=== PATIENT | male | born 1965 | race Caucasian/White ===

== ENCOUNTER 2017-07-06 08:42 | Emergency (ER) | payer SELFPAY ==
[2017-07-06] VITALS (7 sets, daily range): BP systolic 119–138; BP diastolic 61–77; PULSE 68–102; RESP 18–22; TEMP 36.6; O2SAT 92–100; BMI 45.8
--- NOTE | 2017-07-06 09:03 | RAD_ITS ---
STUDY: X-RAY CHEST REASON FOR EXAM: Male, 52 years old. Productive cough. TECHNIQUE: Frontal and lateral views of the chest. COMPARISON: July 29, 2016 FINDINGS: The lungs are hyperexpanded and unchanged. There is no demonstrated pleural abnormality. Normal size heart. Normal mediastinum and mega. Normal visualized pulmonary arteries. Normal visualized aortic arch and descending thoracic aorta. Normal visualized thoracic spine. Normal visualized ribs, clavicles, and shoulders. There is no demonstrated abnormality of the visualized soft tissue structures of the upper abdomen. RAD/Chest PA and Lateral IMPRESSION: Hyperexpansion with no acute pathology. Electronically Signed: Crow Ashraf MD at 10:53 EST , Service support ,
[2017-07-06] MEDS: Ipratropium/Albuterol Sulfate 3 ML AMPUL.NEB INHALATION (09:15)
[2017-07-06] MEDS: Albuterol 2.5 MG/3 ML VIAL.NEB. INHALATION ×3 (09:15→09:48)
[2017-07-06 09:28] LABS: Absolute Lymphocyte Count 2.67 X10^3/ul (0.83-4.51); Absolute Neutrophil Count 8.3 X10^3/uL (2.0-7.7); Basophil# 0.02 X10^3/uL; Basophil% 0.2 % (0-1); Eosinophil# 0.35 X10^3/uL; Eosinophils% 2.9 % (0-5); Hematocrit 40.3 % (40-54); Hemoglobin 12.3 g/dl (13.0-16.5); Lymphocyte # 2.67 X10^3/ul (4.0); Mean Corp Hgb Conc 30.5 g/gl (32-36); Mean Corpuscular Hgb 31.8 pg (27.0-32.0); Mean Corpuscular Volume 104.1 fL (80-94); Monocyte# 0.79 X10^3/uL; Monocyte% 6.5 % (0-10); Neutrophil # 8.32 X10^3/uL (2.7-7.7); Neutrophil % 68.3 % (47-70); Platelet Count 316 K/mm3 (150-450); RBC Distribution Width SD 57.2 fl (35.1-43.9); Red Blood Count 3.87 M/mm3 (4.6-6.2); White Blood Count 12.2 K/mm3 (4.4-11.0)
[2017-07-06 09:33] LABS: POSITIVE COUNT NO; POSITIVE DIFFERENTIAL NO; POSITIVE MORPHOLOGY NO
[2017-07-06 09:38] LABS: Anion Gap 6 (5-15); BUN 15 mg/dL (7-18); BUN/Creat Ratio 18.2 RATIO (10-20); Calcium,Total 9.4 mg/dL (8.5-10.1); Chloride 106 mmol/L (98-107); Creatinine, Serum 0.82 mg/dL (0.70-1.30); EST Glomerular Filtration Rate 104 mL/min (>60); Est Glom Filt Rate - Afr Amer 126 mL/min (>60); Estimated Creatinine Clearance 125.95 ml/min; Glucose 131 mg/dL (74-106); Potassium 3.9 mmol/L (3.5-5.1); Sodium Level 142 mmol/L (136-145)
--- NOTE | 2017-07-06 10:31 | ED.DCSUM_ITS ---
- ER Visit Summary Date of Service: 07/06/17 Chief Complaint: [Cough] History of Present Illness: The patient is a 52 M [who presents the emergency department with 4 days of cough sore throat subjective fevers right ear pain headache and myalgias. He was admitted for 6 days 6 or 7 months ago with pneumonia and he feels like he may be getting that again. He has had a thick yellow productive sputum. He has a history of asthma and COPD he has been taking ProAir for that however he supposed to be on Symbicort but has not been on them for several months. He does smoke. He is otherwise healthy except for borderline elevation of his blood pressure] Physical Examination: [] 92% on room air other vitals within acceptable limits Obese WN WD NAD PERRL EOMI TMs are clear Posterior oropharynx is normal MMM NECK supple and nontender, no masses RRR no murmur rub or gallop, no peripheral edema, symmetric radial pulses Diminished breath sounds diffusely no respiratory distress ABDOMEN is soft and nontender, normal bowel sounds, no distension, no rebound or guarding SKIN is warm and dry no rashes Alert and Oriented x3, CN II-XII in tact, no motor or sensory deficits, gait normal No lymphadenopathy Test Results: [] Emergency Department Course and Treatment: [Chest x-ray was obtained to rule out pneumonia. It shows no acute process. He does have hyperexpansion consistent with COPD and asthma. He was given breathing treatments and prednisone in the emergency department. He did improve. He had improvement air movement on auscultation. He was ambulated and pulse ox maintained at 96%. He did get mildly dyspneic. At this time I do think he can be discharged home. He will be given doxycycline prednisone and albuterol nebulize. He was given precautions for which to return and will follow up with his primary care doctor] Treatment Plan: [] Disposition: [Discharge] Impression: [Asthma with bronchitis] This note was generated with [employer] dictation software. It may contain incorrect words, spelling, and punctuation that were not noted in review of the chart prior to signing ED Disposition - Plan for ED Patient: Chief Complaint: Cough Referrals: Haris Stout Chi, MD [Primary Care Provider] -
--- NOTE | 2017-07-06 11:50 | ED.DEP ---
ED Disposition - Plan for ED Patient: Chief Complaint: Cough Instructions: ED Bronchitis Asthmatic Prescriptions: Albuterol Aerosols [Ventolin Aerosols] 2.5 mg INHALATION Q4H PRN #25 vial Prednisone [Deltasone] 60 mg PO DAILY 5 Days #15 tablet Doxycycline Monohydrate 100 mg PO BID #20 capsule Referrals: Haris Stout Chi, MD [Primary Care Provider] - 3-5 Days
== END 2017-07-06 12:30 | disposition home or self-care (01) ==
LOC: ED 09:11
PROVIDERS: Emergency Provider Emergency Medicine; Family Provider Family Medicine Geriatric Medicine; PCP Family Medicine Geriatric Medicine
DX: J40 Bronchitis, not specified as acute or chronic (principal); J44.9 Chronic obstructive pulmonary disease, unspecified; H92.01 Otalgia, right ear; R03.0 Elevated blood-pressure reading, without diagnosis of hypertension; E66.9 Obesity, unspecified; Z87.01 Personal history of pneumonia (recurrent); Z72.0 Tobacco use
CPT/HCPCS: 71046; 80048; 85025; 87804; 94640; 99283; A4216

== ENCOUNTER 2018-02-03 10:07 | Inpatient (IN) | payer OTHER, SELFPAY ==
[2018-02-03] VITALS (16 sets, daily range): BP systolic 120–158; BP diastolic 72–97; PULSE 71–91; RESP 14–22; TEMP 36.4–37.1; O2SAT 84–95; BMI 44.7; BMI 44.4; BMI 44.5
--- NOTE | 2018-02-03 10:22 | EKG12_ITS ---
Test Reason : SOB Blood Pressure : / mmHG Vent. Rate : 084 BPM Atrial Rate : 084 BPM P-R Int : 150 ms QRS Dur : 090 ms QT Int : 368 ms P-R-T Axes : 067 -25 028 degrees QTc Int : 434 ms Normal sinus rhythm Low voltage QRS Borderline ECG Confirmed by CORAL MADISON ([id number]), associate editor RUSSEL MCKEON ([id number]) on 02/09/2018 1:43:50 PM Referred By: Confirmed By:CORAL MADISON
--- NOTE | 2018-02-03 10:25 | ED.VISSUMM ---
- ER Visit Summary Date of Service: 02/03/18 Chief Complaint: Shortness of breath History of Present Illness: The patient is a 52 M presenting with shortness of breath. He states this started on Thursday. Shortness of breath has been worse with exertion. He states he walks about 15 steps and becomes short of breath. He has chest pain associated with this. He states he has been using an inhaler very frequently over the past several days and this has not been helping. He has a history of a previous [place]. His only medication is pro-air. He is a smoker. Denies PE/DVT risk factors. Physical Examination: Vitals are stable. Patient is afebrile. Alert no acute distress. Pulse ox 88% on room air, 95% on 2 L. HEENT exam is unremarkable. Neck is supple. Lungs are diminished bilaterally. Heart is regular rate and rhythm. Abdomen is soft nontender nondistended. Extremities are unremarkable. Skin is warm and dry. No focal neurologic deficit. Remainder of exam is unremarkable. Emergency Department Course and Treatment: Patient is given albuterol, Atrovent aerosols. EKG is sinus rate of 84 with no acute ischemic changes. CBC shows hemoglobin 12.8. Chemistries show glucose 151. Troponin is negative. D-dimer is 1.49. Due to elevated d-dimer, CTA chest was obtained and shows bilateral pulmonary emboli worse on the right side. He was given Xarelto. When attempting to stand up for ambulation patient became hypoxic. Will discuss with the hospitalist for admission. Disposition: Admission Impression: Bilateral pulmonary embolism, hypoxia This note was generated with [employer] dictation software. It may contain incorrect words, spelling, and punctuation that were not noted in review of the chart prior to signing ED Disposition - Plan for ED Patient: Chief Complaint: Shortness of Breath Referrals: Haris Stout Chi, MD [Primary Care Provider] -
[2018-02-03] MEDS: Ipratropium/Albuterol Sulfate 3 ML AMPUL.NEB INHALATION (10:31)
[2018-02-03 11:07] LABS: Anion Gap 7 (5-15); BUN 17 mg/dL (7-18); BUN/Creat Ratio 21.2 RATIO (10-20); Calcium,Total 9.3 mg/dL (8.5-10.1); Chloride 107 mmol/L (98-107); EST Glomerular Filtration Rate 107 mL/min (>60); Est Glom Filt Rate - Afr Amer 130 mL/min (>60); Glucose 151 mg/dL (74-106); Potassium 4.2 mmol/L (3.5-5.1); Sodium Level 144 mmol/L (136-145)
[2018-02-03 11:08] LABS: D-Dimer Quantitative (DVT/PE) 1.49 FEU/ug/m (0.27-0.49)
--- NOTE | 2018-02-03 11:09 | ED.RN ---
notified of d-dimer of 1.49.
[2018-02-03 11:10] LABS: Absolute Lymphocyte Count 1.72 X10^3/ul (0.83-4.51); Absolute Neutrophil Count 6.5 X10^3/uL (2.0-7.7); Basophil# 0.02 X10^3/uL; Basophil% 0.2 % (0-1); Eosinophil# 0.28 X10^3/uL; Eosinophils% 3.1 % (0-5); Hematocrit 40.8 % (40-54); Hemoglobin 12.8 g/dl (13.0-16.5); Lymphocyte # 1.72 X10^3/ul (4.0); Lymphocyte % 18.8 % (19-41); Mean Corp Hgb Conc 31.4 g/gl (32-36); Mean Corpuscular Hgb 32.9 pg (27.0-32.0); Mean Corpuscular Volume 104.9 fL (80-94); Mean Platelet Vol. 10.4 fl (6.2-12.0); Monocyte# 0.63 X10^3/uL; Monocyte% 6.9 % (0-10); Neutrophil % 70.9 % (47-70); Platelet Count 266 K/mm3 (150-450); RBC Distribution Width CV 15.1 % (11.6-14.6); RBC Distribution Width SD 57.7 fl (35.1-43.9); Red Blood Count 3.89 M/mm3 (4.6-6.2); White Blood Count 9.2 K/mm3 (4.4-11.0)
[2018-02-03 11:12] LABS: POSITIVE COUNT NO; POSITIVE DIFFERENTIAL NO; POSITIVE MORPHOLOGY NO
[2018-02-03 11:36] LABS: BNP,B-Type NATRIURETIC PEPTIDE 193.1 pg/mL (0-100)
--- NOTE | 2018-02-03 13:06 | NURSING ---
101 PE ANA ROSA
[2018-02-03] MEDS: Rivaroxaban 15 MG Tablet PO ×2 (13:22→22:43)
[2018-02-03] MEDS: oxyCODONE 5 MG Tablet PO ×3 (14:12→22:56)
--- NOTE | 2018-02-03 15:21 | PCM.HP.STD ---
Problem List (1) Pulmonary embolism Status: Acute Qualifiers: Pulmonary embolism type: other Chronicity: acute (2) Acute respiratory failure with hypoxia Status: Acute History of Present Illness Date of Admission: 02/03/18 Chief Complaint: shortness of breath. The patient is a 52 year old M since with shortness of breath since Thursday. Worse with exertion. Did have some intermittent chest pain with this as well. Did have some dizziness. Presented to the emergency room and was found to have bilateral pulmonary emboli. Patient states that this is similar to when he had pulmonary embolism in the past. Patient stated that happened about 8 years ago and was unprovoked and was taken off by his physician from [facility]. Patient denies any recent long travel or any lower extremity injuries. [] Past Medical History Past Medical History (Chronic Problems): Chronic Problems DANIEL (obstructive sleep apnea) (Chronic) history of mild CAD (Chronic) Bronchial asthma (Chronic) Chronic obstructive lung disease (Chronic) Medical History: Medical History (Last Updated 02/03/18 @ 15:24 by Nicho Garvin DO) Asthma J45.909 CAD (coronary artery disease) I25.10 COPD (chronic obstructive pulmonary disease) J44.9 DANIEL (obstructive sleep apnea) G47.33 VTE (venous thromboembolism) I82.90 Allergies egg Allergy (Verified 07/06/17 08:44) Anaphylaxis tree nut [Tree Nut] Allergy (Verified 07/06/17 08:44) Anaphylaxis SHRIMP Allergy (Uncoded 07/06/17 08:44) Anaphylaxis Home Medications: Ambulatory Orders Medication Instructions Recorded Albuterol IH (ProAir) [Proair Hfa] 2 puff INHALATION Q2H PRN PRN #1 08/02/16 inhaler Surgical History: herniorrhaphy, - - knee surgery Psychiatric History: No pertinent psych hx Lives: Spouse/ Significant Other Smoking Status: Light Smoker (<10/day) Tobacco Use: Cigarettes Alcohol: None Drugs: None - *Family History Paternal History Items: Heart Disease - Father was diagnosed coronary artery disease as preop evaluationin his 60s and had quadruple bypass surgery Review of Systems Constitutional: Denies: Anorexia, Chills, Fever Eyes: Denies: Blurred vision, Double vision HEENT: Denies: Head Aches, Sinus Congestion, Sinus Drainage Cardiovascular: Reports: Chest Pain, Edema - chronic Respiratory: Reports: Shortness of breath upon exertion. Denies: Cough Gastrointestinal: Denies: Abdominal Pain, Nausea, Vomiting Genitourinary: Denies: Dysuria Musculoskeletal: Denies: Joint Pain, Joint Tenderness Skin: Denies: Rash, Wounds Neurological: Denies: Numbness, Tingling, Focal weakness Psychiatric: Denies: Anxiety, Depression Endocrine: Denies: Change in Body Habitus, Heat/ Cold Intolerance Hematologic/ Lymphatic: Reports: Hx of blood clot. Denies: Easy Bruising, Easy Bleeding Comment: All review of systems are negative except as mentioned in the history of present illness and the other review of systems. VTE Information - Inpt Only VTE Present on Admission: No VTE Mechan Device Prophylaxis: None VTE Pharm Prophylaxis ordered?: No VTE Suspected: Suspected PE Patient Problems: Active and Suspected Problems Pulmonary embolism (Acute) Acute respiratory failure with hypoxia (Acute) - Physical Exam General: Alert, Cooperative, No apparent distress HEENT: Atraumatic, Normocephalic, - - Glasses. No icterus. Oral: Moist Mucosa, No Gingival or Mucosal Lesions/ Ulcerations Neck: No Nodes, Thyroid Normal Size and Texture Lungs: Clear to auscultation, Normal air movement, No rhonchi, No wheeze Cardiovascular: Regular rate, Regular Rhythm, Normal S1, Normal S2, No murmurs Abdomen: Bowel Sounds Present, Soft, Non Tender, Non-Distended, No Hepato-splenomegaly Extremities: No Calf Tenderness, Edema - Trace Skin: No rashes, No breakdown Musculoskeletal: No Tenderness to Palpation of Joints or Extremities, No Muscle Wasting Neurological: Deep Tendon Reflexes 2+/4 and Symmetrical, - - No clonus Psych/Mental Status: Normal Affect, Appropriate Vital Signs Temp Pulse Resp BP Pulse Ox 37.0 C 91 14 158/97 H 84 02/03/18 13:38 02/03/18 15:00 02/03/18 13:38 02/03/18 13:38 02/03/18 15:19 Oxygen Delivery Method Room Air Weight: 161.4 kg Body Mass Index (BMI) 44.4 Laboratory Tests 02/03/18 02/03/18 02/03/18 Range/Units 10:40 10:40 10:40 WBC (4.4-11.0) K/mm3 RBC (4.6-6.2) M/mm3 Hgb (13.0-16.5) g/dl Hct (40-54) % MCV (80-94) fL MCH (27.0-32.0) pg MCHC (32-36) g/gl RDW (11.6-14.6) % RDW Differential (35.1-43.9) fl Plt Count (150-450) K/mm3 MPV (6.2-12.0) fl Immature Gran % (Auto) (0.0-0.9) % Neut % (Auto) (47-70) % Lymph % (Auto) (19-41) % [place] % (Auto) (0-10) % Eos % (Auto) (0-5) % Baso % (Auto) (0-1) % Absolute Neuts (auto) (2.0-7.7) X10^3/uL Absolute Lymphs (auto) (0.83-4.51) X10^3/ul Total Counted D-Dimer Quant (PE/DVT) 1.49 H* (0.27-0.49) FEU/ug/m Sodium 144 (136-145) mmol/L Potassium 4.2 (3.5-5.1) mmol/L Chloride 107 (98-107) mmol/L Carbon Dioxide 30.0 (21.0-32.0) mmol/L Anion Gap 7 (5-15) BUN 17 (7-18) mg/dL Creatinine 0.80 (0.70-1.30) mg/dL Estim Creat Clear Calc 129.10 ml/min Est GFR (MDRD) Af Amer 130 (>60) mL/min Est GFR (MDRD) Non-Af 107 (>60) mL/min BUN/Creatinine Ratio 21.2 H (10-20) RATIO Glucose 151 H (74-106) mg/dL Calcium 9.3 (8.5-10.1) mg/dL Troponin I < 0.015 (<0.045) ng/mL B-Natriuretic Peptide 193.1 H (0-100) pg/mL 02/03/18 Range/Units 10:40 WBC 9.2 (4.4-11.0) K/mm3 RBC 3.89 L (4.6-6.2) M/mm3 Hgb 12.8 L (13.0-16.5) g/dl Hct 40.8 (40-54) % MCV 104.9 H (80-94) fL MCH 32.9 H (27.0-32.0) pg MCHC 31.4 L (32-36) g/gl RDW 15.1 H (11.6-14.6) % RDW Differential 57.7 H (35.1-43.9) fl Plt Count 266 (150-450) K/mm3 MPV 10.4 (6.2-12.0) fl Immature Gran % (Auto) 0.100 (0.0-0.9) % Neut % (Auto) 70.9 H (47-70) % Lymph % (Auto) 18.8 L (19-41) % Black[place] % (Auto) 6.9 (0-10) % Eos % (Auto) 3.1 (0-5) % Baso % (Auto) 0.2 (0-1) % Absolute Neuts (auto) 6.5 (2.0-7.7) X10^3/uL Absolute Lymphs (auto) 1.72 (0.83-4.51) X10^3/ul Total Counted Not Reportable D-Dimer Quant (PE/DVT) (0.27-0.49) FEU/ug/m Sodium (136-145) mmol/L Potassium (3.5-5.1) mmol/L Chloride (98-107) mmol/L Carbon Dioxide (21.0-32.0) mmol/L Anion Gap (5-15) BUN (7-18) mg/dL Creatinine (0.70-1.30) mg/dL Estim Creat Clear Calc ml/min Est GFR (MDRD) Af Amer (>60) mL/min Est GFR (MDRD) Non-Af (>60) mL/min BUN/Creatinine Ratio (10-20) RATIO Glucose (74-106) mg/dL Calcium (8.5-10.1) mg/dL Troponin I (<0.045) ng/mL B-Natriuretic Peptide (0-100) pg/mL Clinical Impression(s) from Imaging Studies Chest X-Ray 02/03/18 10:22 IMPRESSION: Hyperinflation. Decreased bronchovascular markings in the right upper lobe suggestive of emphysematous changes. No acute abnormality is seen. Electronically Signed: Elliot Dover MD at 11:01 EDT Tel [phone], Service support , Chest CTA 02/03/18 11:09 IMPRESSION: Bilateral pulmonary emboli worse on the right side. Stable scarring in both lungs. Electronically Signed: Elliot Dover MD at 12:38 EDT Tel [phone], Service support , Assessment/Plan All Active Problems Pulmonary embolism (Acute) Acute respiratory failure with hypoxia (Acute) Pneumonia (Acute) Atypical chest pain (Acute) 1. Bilateral pulmonary emboli Currently stable at this time Continue with Xarelto Given that this is unprovoked in the patient's previous blood clot was unprovoked, patient will require lifelong anticoagulation Check an echocardiogram to evaluate for right heart strain 2. Acute hypoxic respiratory failure Secondary to pulmonary emboli Ambulatory pulse ox on discharge Disposition: Patient be monitored overnight. We will check an amatory pulse ox in the morning. Follow-up on the rest results and patient's course and patient could be discharged as early as the 6th. Code Visit Inpatient E&M: 23008 Init Hosp L3
[2018-02-03] MEDS: Albuterol 2.5 MG/3 ML VIAL.NEB. INHALATION (18:23)
[2018-02-04] VITALS (13 sets, daily range): BP systolic 128–136; BP diastolic 62–69; PULSE 76–84; RESP 16–20; TEMP 36.2–36.7; O2SAT 3–93
[2018-02-04] MEDS: oxyCODONE 5 MG Tablet PO ×3 (03:40→15:53)
[2018-02-04] MEDS: Albuterol 2.5 MG/3 ML VIAL.NEB. INHALATION ×3 (06:55→15:11)
[2018-02-04] MEDS: Rivaroxaban 15 MG Tablet PO (07:54)
--- NOTE | 2018-02-04 12:13 | CASEMGMT ---
Face to Face with patient for initial transition planning/care coordination assessment. JEOVANY NAVA introduced self and role at [facility], pt voices understanding and consents to assessment at this time. Pt is sitting up in bed in no distress at this time. Pt is A/O x4 at this time and answers all questions appropriately. Care providers, pharmacy, and demographics verified. See attached link. Pt voices no further concerns/needs at this time. Advised pt to ask for CM if any further questions/concerns/needs arise, voices understanding. CM working on home oxygen and anti-coagulation. PLAN: [place] JEOVANY NAVA
--- NOTE | 2018-02-04 12:26 | PCM.DC ---
- Discharge Diagnoses Current Active Problems: Current Active and Chronic Problems (Last Updated 02/03/18 @ 15:24 by Nicho Garvin DO) Pulmonary embolism (Acute) Acute respiratory failure with hypoxia (Acute) You will use the following diet at home:: Cardiac Your food should be the consistency of: Regular Your liquids should be the consistency of: Regular/Thin Discharge Activity: Return to Normal Activity Additional Instructions: Use O2 as directed. You also need to talk to your PCP about having a repeat sleep study. Allergies/Adverse Reactions: Allergies egg Allergy (Verified 07/06/17 08:44) Anaphylaxis tree nut [Tree Nut] Allergy (Verified 07/06/17 08:44) Anaphylaxis SHRIMP Allergy (Uncoded 07/06/17 08:44) Anaphylaxis Medications to take at Discharge Albuterol IH (ProAir) [Proair Hfa] 2 puff INHALATION Q2H PRN PRN #1 inhaler 08/02/16 Acetaminophen [Tylenol Tablet] 650 mg PO Q6H PRN PRN tablet 02/04/18 Enoxaparin [Lovenox] 240 mg SC DAILY #7 syringe 02/04/18 Warfarin [Coumadin] 5 mg PO DAILY #30 tab 02/04/18 The following prescriptions were given: Enoxaparin [Lovenox] 240 mg SC DAILY #7 syringe Warfarin [Coumadin] 5 mg PO DAILY #30 tab Primary Care Physician: Haris Stout Chi, MD [Primary Care Provider] - Please follow up with your Primary Care Physician in: 1 week Test Results: Test results from this visit will be discussed in further detail at your follow-up appointment, if applicable.
--- NOTE | 2018-02-04 12:34 | CASEMGMT ---
Addendum entered by Catrachita Gatica 02/04/18 14:52: This RN CM spoke with [facility] pharmacy again in regards to Lovenox 240mg daily and tech states that co-pay will be $565 for 7 days of Lovenox for pt. Fabi LEIGH and Dr. Garvin aware at this time and order for Fragmin sent to [facility] pharmacy at this time. Call then placed to pharmacy again and they state that that fragmin dose was discontinued and it is also not covered under pt's insurance. Call to Amy project construction manager and asked if pt had extenuating circumstances that the hospital would cover pt's lovenox with Rx assist program. She states to have Lovenox transferred to [facility] retail pharmacy and have them run med and see what cost would be. Call to Esteavn at [facility] retail pharmacy to have him transfer script and get co-pay rome and then we will see if we can get Rx assist to help. Vero THAYER CM Original Note: Per Fabi LEIGH, pt to be sent home on Xarelto and med e-scribed to [facility]. Call to [facility] pharmacy and per tech, scripts will be $400-500/month depending on dosage and even with Xarelto co-pay card pt would still be paying several hundred dollars out of pocket. Fabi LEIGH aware and into room with this RN CM to discuss with pt. Pt states that he would be unable to afford that per month. Per Fabi LEIGH, pt can now go on Coumadin and will be bridged with Lovenox. Lovenox to be e-scribed and this RN ELIJAH will call to check on co-pay. Vero THAYER CM
[2018-02-04 13:15] LABS: International Normalized Ratio 1.9; Prothrombin Time (Protime)PT. 21.6 SECONDS (11.7-14.9)
[2018-02-04] MEDS: Enoxaparin 120 MG/0.8 ML Syringe 240 MG SC (13:38)
--- NOTE | 2018-02-04 15:44 | PCM.DC.SUM ---
<Kishor Henderson - Last Filed: 02/04/18 15:44> Discharge Date and Diagnosis - Problem List Patient Problems: Active and Suspected Problems (Last Updated 02/03/18 @ 15:24 by Nicho Garvin DO) Pulmonary embolism (Acute) Acute respiratory failure with hypoxia (Acute) Date of Admission: 02/03/18 Date of Discharge: 02/04/18 - Primary Discharge Diagnosis Active and Suspected Problems (Last Updated 02/03/18 @ 15:24 by Nicho Garvin DO) Pulmonary embolism (Acute), recurrent Acute respiratory failure with hypoxia (Acute) COPD CAD DANIEL - Secondary Discharge Diagnosis Chronic Problems (Last Updated 02/03/18 @ 15:24 by Nicho Garvin DO) Chronic obstructive lung disease (Chronic) Bronchial asthma (Chronic) history of mild CAD (Chronic) DANIEL (obstructive sleep apnea) (Chronic) Hospital Course and Treatment Imaging Results: RAD/Chest 1 View (Portable) IMPRESSION: Hyperinflation. Decreased bronchovascular markings in the right upper lobe suggestive of emphysematous changes. No acute abnormality is seen. CT/CTA Chest W/WO Contrast IMPRESSION: Bilateral pulmonary emboli worse on the right side. Stable scarring in both lungs. Echo: Interpretation Summary Mild concentric left ventricular hypertrophy. The estimated ejection fraction is 75 %. Normal diastology for age. Moderately dilated right ventricle. Mild segmental dysfunction of right ventricle. Trivial tricuspid valve insufficiency. Right ventricular systolic pressure estimated to be 39 mmHg. Mild pulmonary hypertension. RV apical strain consistent with acute pulmonary embolism The study was technically difficult. There is no comparison study available. Contrast injection was performed. Operations: None Procedures: 2-D Echocardiogram Summary of Care Provided: Physical exam on day of discharge: General: Resting comfortably NAD Psych: A/Ox3 normal affect HEENT: PEARRLA AT NC Neck: Supple NT CV: RRR no m/t/r/g/h Resp: CTA Abd: [id number] Soft NT no guarding or rigidity, morbidly obese Ext: DP2+= no edema Skin: W/D normal turgor Lymph/Heme: No active bleeding or adenopathy Neuro: CN2-12 intact Hospital course: The patient is a 52 year old M with a history of pulmonary embolism, COPD, hypertension, DANIEL noncompliant with CPAP, morbid obesity who presented to the emergency with chief complaint of shortness of breath, worse with exertion. In the ER he had an elevated D dimer and a CTA revealed bilateral PE. Trop neg. He was placed on Xarelto and admitted to the PCU on telemetry. He underwent an echocardiogram which did demonstrate a strain pattern. His symptoms improved significantly overnight, however he still remained short of breath especially with exertion, and was unable to be weaned off of oxygen. He required continuous oxygen both at rest and with exertion and will require oxygen going forward at discharge from the hospital. Unfortunately he was unable to afford Xarelto for discharge so he was transitioned to Lovenox with Coumadin bridge. He will continue Lovenox as an outpatient until his Coumadin is therapeutic. He will need to have his INR checked as an outpatient in 2 days and further have his dosage adjusted per his PCP. He was discharged home in stable condition. Please follow-up with her PCP in 1-2 weeks. The patient also revealed to me while he was here that he had sleep apnea however his sleep study was 8 years ago and he only recently acquired a machine, and that he plans to adjust the settings on his own as he did not know what he needed. I encouraged him to get a repeat sleep study and to discuss this with his PCP. This patient was seen by Kishor Henderson PA-C under the supervision of Doctor Bharathi. [] Discharge Diet: Low fat/ Low Cholesterol, 2000 mg Sodium Diet Discharge Activity: Return to Normal Activity Home Medications: Medications to take at Discharge Albuterol IH (ProAir) [Proair Hfa] 2 puff INHALATION Q2H PRN PRN #1 inhaler 08/02/16 Acetaminophen [Tylenol Tablet] 650 mg PO Q6H PRN PRN tablet 02/04/18 Dalteparin [Fragmin] 15,000 units SC Q12H #14 syringe 02/04/18 Warfarin [Coumadin] 5 mg PO DAILY #30 tab 02/04/18 Following Prescrptions Were Given to Patient: Dalteparin [Fragmin] 15,000 units SC Q12H #14 syringe Warfarin [Coumadin] 5 mg PO DAILY #30 tab Primary Care Physician: Haris Stout Chi, MD [Primary Care Provider] - Please follow up with your Primary Care Physician in: 1 week Disposition: Home Minutes spent on discharge:: 35 Patient Condition:: Stable Medical Necessity - Tobacco Use Smoking Status: Light Smoker (<10/day) Tobacco Use: Cigarettes Meaningful Use Info Meaningful Use Diagnoses (Choose all that apply): VTE - VTE Anticoag overlap given w/in hospital stay or rx'd at dc?: Yes Pt receive overlap for 5 days?: Yes <Nicho Garvin - Last Filed: 02/04/18 16:18> Discharge Date and Diagnosis - Primary Discharge Diagnosis Active and Suspected Problems (Last Updated 02/03/18 @ 15:24 by Nicho Garvin DO) Pulmonary embolism (Acute) Acute respiratory failure with hypoxia (Acute) - Secondary Discharge Diagnosis Chronic Problems (Last Updated 02/03/18 @ 15:24 by Nicho Garvin DO) Chronic obstructive lung disease (Chronic) Bronchial asthma (Chronic) history of mild CAD (Chronic) DANIEL (obstructive sleep apnea) (Chronic) Hospital Course and Treatment Operations: None Procedures: 2-D Echocardiogram Summary of Care Provided: Patient seen and examined independently. Data reviewed. I agree with the above note by the physician broker assistant. The patient is a 52 year old M is with shortness of breath. Patient was found to have PEs. Patient also had acute hypoxic respiratory failure due to that. Patient had an ultrasound did not show any heart strain on echocardiogram. Initially the plan was for the patient to be discharged with Xarelto and Eliquis. Patient has a very high deductible which he has not met and the cost of over $500 was prohibitive for him. The patient will receive Coumadin and Lovenox. Case management was looking through our pharmacy to get Lovenox so that he would have to pay the very minimal or none for that. Patient is looking at lifelong anticoagulation given that this is second non-provoked thromboembolic event. [] Discharge Diet: Low fat/ Low Cholesterol, 2000 mg Sodium Diet Discharge Activity: Return to Normal Activity Disposition: Home Patient Condition:: Stable Meaningful Use Info Meaningful Use Diagnoses (Choose all that apply): VTE - VTE Anticoag overlap given w/in hospital stay or rx'd at dc?: No Pt receive overlap for 5 days?: No Reason overlap not ordered, prescribed, or given for 5 days: Procedure Not Indicated Code Visit Inpatient E&M: 80058 Disch Hosp
--- NOTE | 2018-02-04 16:02 | CASEMGMT ---
F2F faxed to [facility] at this time and call to [facility] to notify that F2F faxed and that pt will be discharged today, voices understanding. Vero THAYER CM
--- NOTE | 2018-02-04 16:33 | CASEMGMT ---
Patient's co-pay for any of the blood thinners are over $300. Patient cannot afford this. With approval the [facility] indigent medication program was used. Le [place]
--- NOTE | 2018-02-04 18:26 | NURSING ---
TALKED W/ PT AGAIN ABOUT IMPORTANCE OF WEARING O2 AT ALL TIMES. STATES HE WOULD TRY.
--- NOTE | 2018-02-05 16:01 | CASEMGMT ---
JEOVANY NAVA DC CALL Discharge Date: 02/04/18 Disposition: Home with Lovenox Bridging LACE 9/STRATA 3 Intro role of CM to patient via home phone. Reviewed dc instructions, no questions. Discussed medications including Lovenox injections. pt states he gave his injection this am and did fine. No f/u appointment has been made yet-pt states he will make his own on Thursday. JEOVANY NAVA encouraged early f/u due to his medications (coumadin, lovenox). No further questions. Nicole ESPINOZA RN ACM
== END 2018-02-04 18:19 | disposition home or self-care (01) | DRG 175 ==
LOC: ED 10:51 → PCU 13:19
PROVIDERS: Physician Assistant; Emergency Provider Emergency Medicine; Family Provider Family Medicine Geriatric Medicine; PCP Family Medicine Geriatric Medicine
DX: I26.99 Other pulmonary embolism without acute cor pulmonale (principal); J96.01 Acute respiratory failure with hypoxia; Z68.41 Body mass index [BMI] 40.0-44.9, adult; J44.9 Chronic obstructive pulmonary disease, unspecified; I25.10 Atherosclerotic heart disease of native coronary artery without angina pectoris; G47.33 Obstructive sleep apnea (adult) (pediatric); E66.01 Morbid (severe) obesity due to excess calories; F17.210 Nicotine dependence, cigarettes, uncomplicated
CPT/HCPCS: 71045; 71275; 80048; 83880; 84484; 85025; 85379; 85610; 93005; 93306; 94640; 99283; 99406; Q9957; Q9967; A4216; C8929

== ENCOUNTER → 2018-02-06 13:28 | Outpatient (CLI) | payer OTHER, SELFPAY ==
[2018-02-06 13:44] LABS: International Normalized Ratio 1.1; Prothrombin Time (Protime)PT. 14.6 SECONDS (11.7-14.9)
== END ==
PROVIDERS: Family Provider Family Medicine Geriatric Medicine; PCP Family Medicine Geriatric Medicine; Visit Provider Physician Assistant
DX: I26.99 Other pulmonary embolism without acute cor pulmonale (principal); Z79.01 Long term (current) use of anticoagulants
CPT/HCPCS: 36415; 85610

== ENCOUNTER → 2018-05-18 12:24 | Outpatient (CLI) | payer OTHER, SELFPAY ==
[2018-05-18 12:09] VITALS: BMI 45.8
--- NOTE | 2018-05-18 12:50 | RAD_ITS ---
STUDY: X-RAY - RIGHT KNEE REASON FOR EXAM: Male, 53 years old. 3 week history of medial pain. No known injury. TECHNIQUE: 4 view(s) of the knee. COMPARISON: None. FINDINGS: Normal visualized distal femur. Normal visualized proximal tibia and fibula. Normal proximal tibiofibular articulation. There is moderate degenerative arthrosis of the medial femorotibial compartment with moderate joint space narrowing. Normal lateral femorotibial compartment. Normal patellofemoral articulation. Small joint effusion. RAD/Knee 4 or More Views IMPRESSION: Degenerative arthrosis. Small joint effusion. Electronically Signed: Elliot Dover MD at 13:16 EST Tel [phone], Service support ,
--- NOTE | 2018-05-18 12:57 | VDLE_ITS ---
Reason For Study: localized edema RIGHT LEFT GSV is normal. GSV is normal. CFV is compressible, spontaneous, phasic, CFV is compressible, spontaneous, phasic, competent and demonstrates normal competent, and demonstrates normal augmentation. augmentation. FV is compressible, spontaneous, phasic, FV is compressible, spontaneous, phasic, competent and demonstrates normal competent and demonstrates normal augmentation. augmentation. POP V is compressible, spontaneous, phasic, POP V is compressible, spontaneous, phasic, competent and demonstrates normal competent and demonstrates normal augmentation. augmentation. T/P Trunk is compressible. T/P Trunk is compressible. PTV is compressible. PTV is compressible. RT PerV is compressible. LT PerV is compressible. Procedure Exam performed in department. The exam was diagnostic. A preliminary report was called and/or faxed to Dr. Stout. Interpretation Summary Deep veins of the lower extremities are bilaterally patent and compressible segmentally. There is no evidence of deep vein thrombosis on either side. Valvular competence appears intact within the proximal deep venous systems bilaterally. The greater saphenous veins appear bilaterally patent and compressible segmentally. Ordering Physician: Haris Stout Performed By: Gil Turner RVT
[2018-05-18 13:30] LABS: Absolute Lymphocyte Count 2.08 X10^3/ul (0.83-4.51); Absolute Neutrophil Count 3.8 X10^3/uL (2.0-7.7); Basophil# 0.02 X10^3/uL; Basophil% 0.3 % (0-1); Eosinophil# 0.21 X10^3/uL; Eosinophils% 3.2 % (0-5); Hematocrit 39.3 % (40-54); Hemoglobin 12.5 g/dl (13.0-16.5); Lymphocyte # 2.08 X10^3/ul (4.0); Lymphocyte % 31.3 % (19-41); Mean Corp Hgb Conc 31.8 g/gl (32-36); Mean Corpuscular Hgb 32.1 pg (27.0-32.0); Mean Platelet Vol. 10.5 fl (6.2-12.0); Monocyte# 0.55 X10^3/uL; Monocyte% 8.3 % (0-10); Neutrophil # 3.77 X10^3/uL (2.7-7.7); Neutrophil % 56.6 % (47-70); POSITIVE COUNT NO; POSITIVE DIFFERENTIAL NO; POSITIVE MORPHOLOGY NO; Platelet Count 324 K/mm3 (150-450); RBC Distribution Width CV 14.8 % (11.6-14.6); RBC Distribution Width SD 53.2 fl (35.1-43.9); Red Blood Count 3.89 M/mm3 (4.6-6.2); White Blood Count 6.7 K/mm3 (4.4-11.0)
[2018-05-18 13:43] LABS: International Normalized Ratio 1.7
[2018-05-18 13:54] LABS: Anion Gap 9 (5-15); BUN 16 mg/dL (7-18); BUN/Creat Ratio 20.6 RATIO (10-20); Calcium,Total 9.6 mg/dL (8.5-10.1); Chloride 108 mmol/L (98-107); Creatinine, Serum 0.78 mg/dL (0.70-1.30); EST Glomerular Filtration Rate 112 mL/min (>60); Est Glom Filt Rate - Afr Amer 135 mL/min (>60); Glucose 101 mg/dL (74-106); Potassium 5.1 mmol/L (3.5-5.1); Sodium Level 144 mmol/L (136-145)
--- OUTSIDE RECORDS SUMMARY | 2018-08-19 22:17 | XMS RPT_ITS ---
:1965 Author Organization OHIP Support Name Relationship Address Phone CHAPA STORES Unavailable [address] + [place] [address] BHUPINDER ORTEGA Unavailable Unavailable + VU HUGHES Unavailable [address] + [place] [address] CHAPA STORES Unavailable [address] + [place] [address] BHUPINDER ORTEGA Unavailable Unavailable + VU HUGHES Unavailable [address] + [place] [address] CHAPA STORES Unavailable [address] + [place] [address] BHUPINDER ORTEGA Unavailable Unavailable + VU HUGHES Unavailable [address] + [place] [address] CHAPA STORES Unavailable [address] + [place] [address] MITA CLIFFORD Unavailable [address] + [address] [place] [address] VU HUGHES Unavailable [address] + [place] [address] CHAPA STORES Unavailable [address] + [place] [address] BHUPINDER ORTEGA Unavailable Unavailable + VU HUGHES Unavailable [address] + [place] [address] CHAPA STORES Unavailable [address] + [place] [address] BHUPINDER ORTEGA Unavailable Unavailable + VU HUGHES Unavailable [address] + [place] [address] CHAPA [facility] Unavailable [address] + [place] [address] MITA CLIFFORD Unavailable [address] + [address] [place] [address] VU HUGHES Unavailable [address] + [place] [address] Care Team Providers Name Role Phone Girish, Haris Chi Attending Unavailable Girish, Haris Chi Primary Care Unavailable Dameon Madison Attending Unavailable Jopperi, Nicho Referring Unavailable Beatriz, Kishor Attending Unavailable Girish, Haris Chi Primary Care Unavailable Jopperi, Nicho Admitting Unavailable Jopperi, Nicho Attending Unavailable Girish, Haris Chi Primary Care Unavailable Jopperi, Nicho Consulting Unavailable Girish, Haris Chi Primary Care Unavailable Jopperi, Nicho Admitting Unavailable Jopperi, Nicho Attending Unavailable Jopperi, Nicho Admitting Unavailable Girish, Haris Chi Primary Care Unavailable Jopperi, Nicho Consulting Unavailable Jopperi, Nicho Attending Unavailable Girish, Haris Chi Primary Care Unavailable Clarissa, Jacy Attending Unavailable PROBLEMS PROBLEMS DATE TYPE CONDITION / CODE ATTENDING STATUS SOURCE 03/04/2018 Unknown R06.02 - Dameon Madison Active Marilla Shortness of Community breath / Hospital R06.02(ICD-10) Repository PROCEDURES PROCEDURES No Procedure Records FoundRESULTS RESULTS VENOUS DUPLEX LOWER Observed: 05/18/2018 Status: F Source: [place] EXTREMITY 7:42 PM [facility] REPOSITORY [facility] Cardiovascular Services [address] [place] [address] Venous Duplex US - Elio Extrem 05/18/18 1301 MR#: [id number] Acct: [id number] Name: CONSTANCE HUGHES Rep #: [id number] : 1965 53 From: Nahid Hoang MD Attending Dr: Girish BASS,Haris Calzada Status: REG CLI Ordering Dr: Haris Stout MD Date: 05/18/18 Location: [facility] Sex: M C Admitted: Reason For Study: localized edema RIGHT LEFT GSV is normal. GSV is normal. CFV is compressible, spontaneous, phasic, CFV is compressible, spontaneous, phasic, competent and demonstrates normal competent, and demonstrates normal augmentation. augmentation. FV is compressible, spontaneous, phasic, FV is compressible, spontaneous, phasic, competent and demonstrates normal competent and demonstrates normal augmentation. augmentation. POP V is compressible, spontaneous, phasic, POP V is compressible, spontaneous, phasic, competent and demonstrates normal competent and demonstrates normal augmentation. augmentation. T/P Trunk is compressible. T/P Trunk is compressible. PTV is compressible. PTV is compressible. RT PerV is compressible. LT PerV is compressible. Procedure Exam performed in department. The exam was diagnostic. A preliminary report was called and/or faxed to Dr. Stout. Interpretation Summary Deep veins of the lower extremities are bilaterally patent and compressible segmentally. There is no evidence of deep vein thrombosis on either side. Valvular competence appears intact within the proximal deep venous systems bilaterally. The greater saphenous veins appear bilaterally patent and compressible segmentally. Ordering Physician: Haris Stout Performed By: Gil Turner, RVT 05/18/181941 Date Nahid Hoang MD CC: Haris Stout MD Date Dictated: 05/18/18 1301 Date Transcribed: 05/18/181941 Catcher Plug: Signed KNEE 4 OR MORE Observed: 05/18/2018 Status: F Source: [place] VIEWS 12:34 PM [facility] REPOSITORY [facility] Imaging Services [address] [place] [address] Knee 4 or More Views MR#: [id number] Acct: [id number] Name: CONSTANCE HUGHES Rep #: [id number] : 1965 M 53 From: Elliot Dover MD PCP: Haris Stout MD, Chi Status: REG CLI Study: Knee 4 or More Views Date of Exam: 05/18/18 Exam# [id number] Ordering Dr: Haris Stout MD STUDY: X-RAY - RIGHT KNEE REASON FOR EXAM: Male, 53 years old. 3 week history of medial pain. No known injury. TECHNIQUE: 4 view(s) of the knee. COMPARISON: None. FINDINGS: Normal visualized distal femur. Normal visualized proximal tibia and fibula. Normal proximal tibiofibular articulation. There is moderate degenerative arthrosis of the medial femorotibial compartment with moderate joint space narrowing. Normal lateral femorotibial compartment. Normal patellofemoral articulation. Small joint effusion. RAD/Knee 4 or More Views IMPRESSION: Degenerative arthrosis. Small joint effusion. Electronically Signed: Elliot Dover MD at 13:16 EST Tel [phone], Service support , CC: Haris Stout MD Catcher Plug: Signed CBC W/DIFF, AUTOMATED Collected: 05/18/2018 Status: F Source: [place] 12:26 PM [facility] REPOSITORY TYPE CODE TESTS RESULT OUT OF RANGE REFERENCE UNITS LAB L100.1000 4.4-11.0 K/mm3 Normal WBC 6.7 LAB L100.1200 4.6-6.2 M/mm3 Low RBC 3.89 LAB L100.1300 13.0-16.5 g/dl Low HGB 12.5 LAB L100.1400 40-54 % Low HCT 39.3 LAB L100.1500 80-94 fL High MCV 101.0 LAB L100.1600 27.0-32.0 pg High MCH 32.1 LAB L100.1700 32-36 g/gl Low MCHC 31.8 LAB L100.1810 11.6-14.6 % High RDW CV 14.8 LAB L100.1820 35.1-43.9 fl High RDW SD 53.2 LAB L100.1900 150-450 K/mm3 Normal PLT 324 LAB L100.2000 6.2-12.0 fl Normal MPV 10.5 LAB L100.2100 47-70 % Normal NEUT% 56.6 LAB L100.2200 19-41 % Normal LY% 31.3 LAB L100.2300 0-10 % Normal MONO% 8.3 LAB L100.2400 0-5 % Normal EO% 3.2 LAB L100.2500 0-1 % Normal BASO% 0.3 LAB L100.2550 0.0-0.9 % Normal IM GRAN % 0.300 Result Comment: IG% - Immature Granulocytes (promyelocytes, myelocytes and metamyelocytes) > 1% indicates that a LEFT SHIFT is Present. LAB L100.2620 2.0-7.7 X10 3/uL Normal Absolute Neut 3.8 LAB L100.2720 0.83-4.51 X10 3/ul Normal Absolute Lymph 2.08 Performed By: #### L100.0100 #### [facility] [address] [place], [address] BASIC METABOLIC Collected: 05/18/2018 Status: F Source: [place] PROFILE ([facility]) 12:26 PM [facility] REPOSITORY TYPE CODE TESTS RESULT OUT OF RANGE REFERENCE UNITS LAB L501.0100 74-106 mg/dL Normal GLU 101 Result Comment: Fasting Glucose result from 100 to 125 mg/dL suggests IMPAIRED HOMEOSTASIS per A.D.A. criteria. Please note revised GLUCOSE reference range effective 2017. LAB L501.1000 7-18 mg/dL Normal BUN 16 LAB L501.1100 0.70-1.30 mg/dL Normal CREAT,SERUM 0.78 Result Comment: The validity of the calculated GFR AND GFRAA in patients over 70 years has not been determined. Clinical correlation is essential. LAB L501.1110 >60 mL/min Normal EST GFR 112 Result Comment: Non- GFR Calc LAB L501.1115 >60 mL/min Normal EST GFR - AA 135 Result Comment: GFR Calc LAB L501.1300 10-20 RATIO High BUN/CRE 20.6 LAB L501.2200 8.5-10.1 mg/dL CA Normal 9.6 LAB L501.5300 136-145 mmol/L NA Normal 144 LAB L501.5600 3.5-5.1 mmol/L K Normal 5.1 LAB L501.5900 98-107 mmol/L High CL 108 LAB L501.6100 21.0-32.0 mmol/L Normal CO2 27.0 LAB L501.6200 5-15 Normal GAP 9 Performed By: #### L500.2500 #### [facility] [address] [place], [address] PROTHROMBIN TIME W/INR Collected: 05/18/2018 Status: F Source: [place] 12:26 PM [facility] REPOSITORY TYPE CODE TESTS RESULT OUT OF RANGE REFERENCE UNITS LAB L300.4150 11.7-14.9 SECONDS High PROTIME 20.0 LAB L300.4200 Normal INR 1.7 Performed By: #### L300.3900 #### [facility] [address] [place], [address] 12 LEAD ELECTROCARDIOGRAM Observed: 02/09/2018 Status: F Source: [place] 1:43 PM [facility] REPOSITORY [facility] Cardiovascular Services [address] [place] [address] 12 Lead EKG 02/03/18 1008 MR#: [id number] Acct: [id number] Name: CONSTANCE HUGHES Keyonna Rep #: [id number] : 1965 52 From: Dameon Madison MD Attending Dr: Nicho Garvin DO Status: DIS IN Ordering Dr: Stephanie Moon MD Date: 02/03/18 Location: [facility] Sex: M C Admitted: 02/03/18 Test Reason : SOB Blood Pressure : / mmHG Vent. Rate : 084 BPM Atrial Rate : 084 BPM P-R Int : 150 ms QRS Dur : 090 ms QT Int : 368 ms P-R-T Axes : 067 -25 028 degrees QTc Int : 434 ms Normal sinus rhythm Low voltage QRS Borderline ECG Confirmed by DAMEON MADISON ([id number]), script editor RUSSEL MCKEON ([id number]) on 02/09/2018 1:43:50 PM Referred By: Confirmed By:DAMEON MADISON 02/09/18 1343 Date Dameon Madison MD CC: Stephanie Moon MD; Nicho Garvin DO; Haris Stout MD Signed PROTHROMBIN TIME W/INR Collected: 02/06/2018 Status: F Source: [place] 1:31 PM [facility] REPOSITORY Order Comment: Send Results To: PCP Reason for Laboratory Test Coumadin TYPE CODE TESTS RESULT OUT OF RANGE REFERENCE UNITS LAB L300.4150 11.7-14.9 SECONDS Normal PROTIME 14.6 LAB L300.4200 Normal INR 1.1 Performed By: #### L300.3900 #### [facility] [address] [facility] [place], [address] DISCHARGE SUMMARY Observed: 02/04/2018 Status: F Source: [place] 4:19 PM [facility] REPOSITORY [facility] Medical Records Department [address] [place] [address] Discharge Summary 02/04/18 1544 MR#: [id number] Acct: [id number] Name: CONSTANCE HUGHES Rep #: [id number] : 1965 52 From: Kishor AVENDAÑO PCP: Haris Stout MD, Chi Status: ADM IN Location: [facility] [id number] <Kishor Henderson - Last Filed: 02/04/18 15:44> Discharge Date and Diagnosis - Problem List Patient Problems: Active and Suspected Problems (Last Updated 02/03/18 @ 15:24 by Nicho Garvin DO) Pulmonary embolism (Acute) Acute respiratory failure with hypoxia (Acute) Date of Admission: 02/03/18 Date of Discharge: 02/04/18 - Primary Discharge Diagnosis Active and Suspected Problems (Last Updated 02/03/18 @ 15:24 by Nicho Garvin DO) Pulmonary embolism (Acute), recurrent Acute respiratory failure with hypoxia (Acute) COPD CAD DANIEL - Secondary Discharge Diagnosis Chronic Problems (Last Updated 02/03/18 @ 15:24 by Nicho Garvin DO) Chronic obstructive lung disease (Chronic) Bronchial asthma (Chronic) history of mild CAD (Chronic) DANIEL (obstructive sleep apnea) (Chronic) Hospital Course and Treatment Imaging Results: RAD/Chest 1 View (Portable) IMPRESSION: Hyperinflation. Decreased bronchovascular markings in the right upper lobe suggestive of emphysematous changes. No acute abnormality is seen. CT/CTA Chest W/WO Contrast IMPRESSION: Bilateral pulmonary emboli worse on the right side. Stable scarring in both lungs. Echo: Interpretation Summary Mild concentric left ventricular hypertrophy. The estimated ejection fraction is 75 %. Normal diastology for age. Moderately dilated right ventricle. Mild segmental dysfunction of right ventricle. Trivial tricuspid valve insufficiency. Right ventricular systolic pressure estimated to be 39 mmHg. Mild pulmonary hypertension. RV apical strain consistent with acute pulmonary embolism The study was technically difficult. There is no comparison study available. Contrast injection was performed. Operations: None Procedures: 2-D Echocardiogram Summary of Care Provided: Physical exam on day of discharge: General: Resting comfortably NAD Psych: A/Ox3 normal affect HEENT: PEARRLA AT NC Neck: Supple NT CV: RRR no m/t/r/g/h Resp: CTA Abd: [id number] Soft NT no guarding or rigidity, morbidly obese Ext: DP2+= no edema Skin: W/D normal turgor Lymph/Heme: No active bleeding or adenopathy Neuro: CN2-12 intact Hospital course: The patient is a 52 year old M with a history of pulmonary embolism, COPD, hypertension, DANIEL noncompliant with CPAP, morbid obesity who presented to the emergency with chief complaint of shortness of breath, worse with exertion. In the ER he had an elevated D dimer and a CTA revealed bilateral PE. Trop neg. He was placed on Xarelto and admitted to the PCU on telemetry. He underwent an echocardiogram which did demonstrate a strain pattern. His symptoms improved significantly overnight, however he still remained short of breath especially with exertion, and was unable to be weaned off of oxygen. He required continuous oxygen both at rest and with exertion and will require oxygen going forward at discharge from the hospital. Unfortunately he was unable to afford Xarelto for discharge so he was transitioned to Lovenox with Coumadin bridge. He will continue Lovenox as an outpatient until his Coumadin is therapeutic. He will need to have his INR checked as an outpatient in 2 days and further have his dosage adjusted per his PCP. He was discharged home in stable condition. Please follow-up with her PCP in 1-2 weeks. The patient also revealed to me while he was here that he had sleep apnea however his sleep study was 8 years ago and he only recently acquired a machine, and that he plans to adjust the settings on his own as he did not know what he needed. I encouraged him to get a repeat sleep study and to discuss this with his PCP. This patient was seen by Kishor Henderson PA-C under the supervision of Doctor Bharathi. [] Discharge Diet: Low fat/ Low Cholesterol, 2000 mg Sodium Diet Discharge Activity: Return to Normal Activity Home Medications: Medications to take at Discharge Albuterol IH (ProAir) [Proair Hfa] 2 puff INHALATION Q2H PRN PRN #1 inhaler 08/02/16 Acetaminophen [Tylenol Tablet] 650 mg PO Q6H PRN PRN tablet 02/04/18 Dalteparin [Fragmin] 15,000 units SC Q12H #14 syringe 02/04/18 Warfarin [Coumadin] 5 mg PO DAILY #30 tab 02/04/18 Following Prescrptions Were Given to Patient: Dalteparin [Fragmin] 15,000 units SC Q12H #14 syringe Warfarin [Coumadin] 5 mg PO DAILY #30 tab Primary Care Physician: Haris Stout Chi, MD [Primary Care Provider] - Please follow up with your Primary Care Physician in: 1 week Disposition: Home Minutes spent on discharge:: 35 Patient Condition:: Stable Medical Necessity - Tobacco Use Smoking Status: Light Smoker (<10/day) Tobacco Use: Cigarettes Meaningful Use Info Meaningful Use Diagnoses (Choose all that apply): VTE - VTE Anticoag overlap given w/in hospital stay or rx'd at dc?: Yes Pt receive overlap for 5 days?: Yes <Nicho Garvin - Last Filed: 02/04/18 16:18> Discharge Date and Diagnosis - Primary Discharge Diagnosis Active and Suspected Problems (Last Updated 02/03/18 @ 15:24 by Nicho Garvin DO) Pulmonary embolism (Acute) Acute respiratory failure with hypoxia (Acute) - Secondary Discharge Diagnosis Chronic Problems (Last Updated 02/03/18 @ 15:24 by Nicho Garvin DO) Chronic obstructive lung disease (Chronic) Bronchial asthma (Chronic) history of mild CAD (Chronic) DANIEL (obstructive sleep apnea) (Chronic) Hospital Course and Treatment Operations: None Procedures: 2-D Echocardiogram Summary of Care Provided: Patient seen and examined independently. Data reviewed. I agree with the above note by the physician program services assistant. The patient is a 52 year old M is with shortness of breath. Patient was found to have PEs. Patient also had acute hypoxic respiratory failure due to that. Patient had an ultrasound did not show any heart strain on echocardiogram. Initially the plan was for the patient to be discharged with Xarelto and Eliquis. Patient has a very high deductible which he has not met and the cost of over $500 was prohibitive for him. The patient will receive Coumadin and Lovenox. Case management was looking through our pharmacy to get Lovenox so that he would have to pay the very minimal or none for that. Patient is looking at lifelong anticoagulation given that this is second non-provoked thromboembolic event. [] Discharge Diet: Low fat/ Low Cholesterol, 2000 mg Sodium Diet Discharge Activity: Return to Normal Activity Disposition: Home Patient Condition:: Stable Meaningful Use Info Meaningful Use Diagnoses (Choose all that apply): VTE - VTE Anticoag overlap given w/in hospital stay or rx'd at ri?: No Pt receive overlap for 5 days?: No Reason overlap not ordered, prescribed, or given for 5 days: Procedure Not Indicated Code Visit Inpatient E AND M: [id number] Disch Hosp 02/04/18 1551 <Electronically signed by Kishor AVENDAÑO> Date Kishor AVENDAÑO 02/04/18 1616<Electronically signed by Nicho Garvin DO> Cosigner Signature (if applicable): Date Nicho Garvin DO CC: KATERYNA Henderson; Nicho Garvin DO; Haris Stout MD Signed PROTHROMBIN TIME W/INR Collected: 02/04/2018 Status: F Source: [place] 12:45 PM [facility] REPOSITORY TYPE CODE TESTS RESULT OUT OF RANGE REFERENCE UNITS LAB L300.4150 11.7-14.9 SECONDS High PROTIME 21.6 LAB L300.4200 Normal INR 1.9 Performed By: #### L300.3900 #### [facility] [address] [facility] [place], [address] DISCHARGE INSTRUCTION Observed: 02/04/2018 Status: F Source: [place] 12:27 PM [facility] REPOSITORY [facility] Medical Records Department [address] [place] [address] Instructions for Home/Discharge Instructions 02/04/18 1226 MR#: [id number] Acct: [id number] Name: CONSTANCE HUGHES Rep #: [id number] : 1965 52 From: Kishor AVENDAÑO PCP: Haris Stout MD, Chi Status: ADM IN - Discharge Diagnoses Current Active Problems: Current Active and Chronic Problems (Last Updated 02/03/18 @ 15:24 by Nicho Garvin DO) Pulmonary embolism (Acute) Acute respiratory failure with hypoxia (Acute) You will use the following diet at home:: Cardiac Your food should be the consistency of: Regular Your liquids should be the consistency of: Regular/Thin Discharge Activity: Return to Normal Activity Additional Instructions: Use O2 as directed. You also need to talk to your PCP about having a repeat sleep study. Allergies/Adverse Reactions: Allergies egg Allergy (Verified 07/06/17 08:44) Anaphylaxis tree nut [Tree Nut] Allergy (Verified 07/06/17 08:44) Anaphylaxis SHRIMP Allergy (Uncoded 07/06/17 08:44) Anaphylaxis Medications to take at Discharge Albuterol IH (ProAir) [Proair Hfa] 2 puff INHALATION Q2H PRN PRN #1 inhaler 08/02/16 Acetaminophen [Tylenol Tablet] 650 mg PO Q6H PRN PRN tablet 02/04/18 Enoxaparin [Lovenox] 240 mg SC DAILY #7 syringe 02/04/18 Warfarin [Coumadin] 5 mg PO DAILY #30 tab 02/04/18 The following prescriptions were given: Enoxaparin [Lovenox] 240 mg SC DAILY #7 syringe Warfarin [Coumadin] 5 mg PO DAILY #30 tab Primary Care Physician: Haris Stout Chi, MD [Primary Care Provider] - Please follow up with your Primary Care Physician in: 1 week Test Results: Test results from this visit will be discussed in further detail at your follow-up appointment, if applicable. 02/04/18 1227 <Electronically signed by Kishor AVENDAÑO> Date Kishor AVENDAÑO CC: Haris Stout MD ECHO, COMPLETE W/ Observed: 02/04/2018 Status: F Source: [place] CONTRAST 12:14 PM [facility] REPOSITORY [facility] Cardiovascular Services [address] [place] [address] [place] [address] Echo Complete W/ Contrast 02/04/18926 MR#: [id number] Acct: [id number] Name: CONSTANCE HUGHES Rep #: [id number] : 1965 52 From: Dameon Madison MD Attending Dr: Nicho Garvin DO Status: ADM IN Ordering Dr: Nicho Garvin DO Date: 02/03/18 Location: [facility] Sex: M C Admitted: 02/03/18 Reason For Study: PE Procedure This was a 2D Doppler, Color Flow transthoracic echocardiogram. The study was technically difficult. Due to obesity and PT unwilling to lie in left lateral decubitus position. Contrast injection was performed. Exam performed portable in patient room. Left Ventricle Mild concentric left ventricular hypertrophy. The estimated ejection fraction is 75 %. Normal diastology for age. No regional wall motion abnormalities noted. Right Ventricle Moderately dilated right ventricle. Mild segmental dysfunction of right ventricle. Atria Normal left atrium. Normal right atrium. Normal atrial septum. Mitral Valve The mitral valve is structurally normal. No prolapse or stenosis seen. Tricuspid Valve Normal tricuspid valve. Trivial tricuspid valve insufficiency. Right ventricular systolic pressure estimated to be 39 mmHg. Mild pulmonary hypertension. Aortic Valve Normal aortic valve. Trisinus/trileaflet aortic valve. Pulmonic Valve The pulmonic valve is not well visualized. Great Vessels Normal aortic root. Normal arch. Normal inferior vena cava. Inferior vena cava collapse with sniff. Pericardium/Pleural No pericardial effusion. Medication Diluted definity 2.0ml given slow IV push to enhance endocardial definition. MMode/2D Measurements AND Calculations LVIDd: 4.8 cm IVSd: 1.4 cm Ao root diam: 3.2 cm LVIDs: 3.7 cm LVPWd: 1.4 cm LA dimension: 3.8 cm RVDd: 3.7 cm FS: 23.9 % Doppler Measurements AND Calculations MV E max alban: 68.6 cm/sec Lat Peak E' Alban: 11.7 cm/sec Med Peak E' Alban: 9.3 cm/sec MV A max alban: 78.9 cm/sec E/E' lat: 5.9 E/E' med: 7.3 MV E/A: 0.87 Ao V2 max: 183.1 cm/sec LV V1 max: 120.4 cm/sec PA V2 max: 120.6 cm/sec Ao max P.4 mmHg LV V1 max P.8 mmHg TR max alban: 265.4 cm/sec TR max P.2 mmHg Interpretation Summary Mild concentric left ventricular hypertrophy. The estimated ejection fraction is 75 %. Normal diastology for age. Moderately dilated right ventricle. Mild segmental dysfunction of right ventricle. Trivial tricuspid valve insufficiency. Right ventricular systolic pressure estimated to be 39 mmHg. Mild pulmonary hypertension. RV apical strain consistent with acute pulmonary embolism The study was technically difficult. There is no comparison study available. Contrast injection was performed. Ordering Physician: Nicho Garvin Referring Physician: Haris Stout Chi Performed By: Leila Loco, CHERI, RVT 02/04/18 1214 Date Dameon Madison MD CC: Nicho Garvin DO; Haris Stout MD Date Dictated: 02/04/18926 Date Transcribed: 02/04/18 121 Catcher Plug: Signed HISTORY AND PHYSICAL Observed: 02/03/2018 Status: F Source: [place] EXAM 3:29 PM [facility] REPOSITORY [facility] Medical Records Department [address] [place] [address] History and Physical 02/03/18 1521 MR#: [id number] Acct: [id number] Name: CONSTANCE HUGHES Rep #: [id number] : 1965 52 From: Nicho Garvin DO PCP: Haris Stout MD, Chi Status: ADM IN Location: [place] [address] Problem List (1) Pulmonary embolism Status: Acute Qualifiers: Pulmonary embolism type: other Chronicity: acute (2) Acute respiratory failure with hypoxia Status: Acute History of Present Illness Date of Admission: 02/03/18 Chief Complaint: shortness of breath. The patient is a 52 year old M since with shortness of breath since Thursday. Worse with exertion. Did have some intermittent chest pain with this as well. Did have some dizziness. Presented to the emergency room and was found to have bilateral pulmonary emboli. Patient states that this is similar to when he had pulmonary embolism in the past. Patient stated that happened about 8 years ago and was unprovoked and was taken off by his physician from [facility]. Patient denies any recent long travel or any lower extremity injuries. [] Past Medical History Past Medical History (Chronic Problems): Chronic Problems DANIEL (obstructive sleep apnea) (Chronic) history of mild CAD (Chronic) Bronchial asthma (Chronic) Chronic obstructive lung disease (Chronic) Medical History: Medical History (Last Updated 02/03/18 @ 15:24 by Nicho Garvin DO) Asthma J45.909 CAD (coronary artery disease) I25.10 COPD (chronic obstructive pulmonary disease) J44.9 DANIEL (obstructive sleep apnea) G47.33 VTE (venous thromboembolism) I82.90 Allergies egg Allergy (Verified 07/06/17 08:44) Anaphylaxis tree nut [Tree Nut] Allergy (Verified 07/06/17 08:44) Anaphylaxis SHRIMP Allergy (Uncoded 07/06/17 08:44) Anaphylaxis Home Medications: Ambulatory Orders Medication Instructions Recorded Albuterol IH (ProAir) [Proair Hfa] 2 puff INHALATION Q2H PRN PRN #1 08/02/16 Surgical History: herniorrhaphy, - - knee surgery Psychiatric History: No pertinent psych hx Lives: Spouse/ Significant Other Smoking Status: Light Smoker (<10/day) Tobacco Use: Cigarettes Alcohol: None Drugs: None - *Family History Paternal History Items: Heart Disease - Father was diagnosed coronary artery disease as preop evaluationin his 60s and had quadruple bypass surgery Review of Systems Constitutional: Denies: Anorexia, Chills, Fever Eyes: Denies: Blurred vision, Double vision HEENT: Denies: Head Aches, Sinus Congestion, Sinus Drainage Cardiovascular: Reports: Chest Pain, Edema - chronic Respiratory: Reports: Shortness of breath upon exertion. Denies: Cough Gastrointestinal: Denies: Abdominal Pain, Nausea, Vomiting Genitourinary: Denies: Dysuria Musculoskeletal: Denies: Joint Pain, Joint Tenderness Skin: Denies: Rash, Wounds Neurological: Denies: Numbness, Tingling, Focal weakness Psychiatric: Denies: Anxiety, Depression Endocrine: Denies: Change in Body Habitus, Heat/ Cold Intolerance Hematologic/ Lymphatic: Reports: Hx of blood clot. Denies: Easy Bruising, Easy Bleeding Comment: All review of systems are negative except as mentioned in the history of present illness and the other review of systems. VTE Information - Inpt Only VTE Present on Admission: No VTE Mechan Device Prophylaxis: None VTE Pharm Prophylaxis ordered?: No VTE Suspected: Suspected PE Patient Problems: Active and Suspected Problems Pulmonary embolism (Acute) Acute respiratory failure with hypoxia (Acute) - Physical Exam General: Alert, Cooperative, No apparent distress HEENT: Atraumatic, Normocephalic, - - Glasses. No icterus. Oral: Moist Mucosa, No Gingival or Mucosal Lesions/ Ulcerations Neck: No Nodes, Thyroid Normal Size and Texture Lungs: Clear to auscultation, Normal air movement, No rhonchi, No wheeze Cardiovascular: Regular rate, Regular Rhythm, Normal S1, Normal S2, No murmurs Abdomen: Bowel Sounds Present, Soft, Non Tender, Non-Distended, No Hepato-splenomegaly Extremities: No Calf Tenderness, Edema - Trace Skin: No rashes, No breakdown Musculoskeletal: No Tenderness to Palpation of Joints or Extremities, No Muscle Wasting Neurological: Deep Tendon Reflexes 2+/4 and Symmetrical, - - No clonus Psych/Mental Status: Normal Affect, Appropriate Vital Signs Temp Pulse Resp BP Pulse Ox 37.0 C 91 14 158/97 H 84 02/03/18 13:38 02/03/18 15:00 02/03/18 13:38 02/03/18 13:38 02/03/18 15:19 Oxygen Delivery Method Room Air Weight: 161.4 kg Body Mass Index (BMI) 44.4 Laboratory Tests WBC (4.4-11.0) K/mm3 RBC (4.6-6.2) M/mm3 Hgb (13.0-16.5) g/dl WBC 9.2 (4.4-11.0) K/mm3 RBC 3.89 L (4.6-6.2) M/mm3 Clinical Impression(s) from Imaging Studies Chest X-Ray 02/03/18 10:22 IMPRESSION: Hyperinflation. Decreased bronchovascular markings in the right upper lobe suggestive of emphysematous changes. No acute abnormality is seen. Electronically Signed: Elliot Dover MD at 11:01 EDT Tel [phone], Service support , Chest CTA 02/03/18 11:09 IMPRESSION: Bilateral pulmonary emboli worse on the right side. Stable scarring in both lungs. Electronically Signed: Elliot Dover MD at 12:38 EDT Tel [phone], Service support , Assessment/Plan All Active Problems Pulmonary embolism (Acute) Acute respiratory failure with hypoxia (Acute) Pneumonia (Acute) Atypical chest pain (Acute) 1. Bilateral pulmonary emboli * Currently stable at this time * Continue with Xarelto * Given that this is unprovoked in the patient's previous blood clot was unprovoked, patient will require lifelong anticoagulation * Check an echocardiogram to evaluate for right heart strain 2. Acute hypoxic respiratory failure Secondary to pulmonary emboli Ambulatory pulse ox on discharge Disposition: Patient be monitored overnight. We will check an amatory pulse ox in the morning. Follow-up on the rest results and patient's course and patient could be discharged as early as the . Code Visit Inpatient E AND M: [id number] Init Hosp L3 02/03/18 1529 <Electronically signed by Nicho Garvin DO> Date Nicho Garvin DO Cosigner Signature: Date (if applicable) CC: Nicho Garvin DO; Haris Stout MD Signed EMERGENCY DEPARTMENT Observed: 02/03/2018 Status: F Source: [place] SUMMARY 1:03 PM [facility] REPOSITORY [facility] Medical Records Department [address] [place] [id number] Emergency Department Summary 02/03/18 1025 MR#: [id number] Acct: [id number] Name: ELLENCONSTANCE Keyonna Rep #: [id number] : 1965 52 From: Stephanie Moon MD PCP: Haris Stout MD, Chi Status: REG ER - ER Visit Summary Date of Service: 02/03/18 Chief Complaint: Shortness of breath History of Present Illness: The patient is a 52 M presenting with shortness of breath. He states this started on Thursday. Shortness of breath has been worse with exertion. He states he walks about 15 steps and becomes short of breath. He has chest pain associated with this. He states he has been using an inhaler very frequently over the past several days and this has not been helping. He has a history of a previous NM. His only medication is pro-air. He is a smoker. Denies PE/DVT risk factors. Physical Examination: Vitals are stable. Patient is afebrile. Alert no acute distress. Pulse ox 88% on room air, 95% on 2 L. HEENT exam is unremarkable. Neck is supple. Lungs are diminished bilaterally. Heart is regular rate and rhythm. Abdomen is soft nontender nondistended. Extremities are unremarkable. Skin is warm and dry. No focal neurologic deficit. Remainder of exam is unremarkable. Emergency Department Course and Treatment: Patient is given albuterol, Atrovent aerosols. EKG is sinus rate of 84 with no acute ischemic changes. CBC shows hemoglobin 12.8. Chemistries show glucose 151. Troponin is negative. D-dimer is 1.49. Due to elevated d-dimer, CTA chest was obtained and shows bilateral pulmonary emboli worse on the right side. He was given Xarelto. When attempting to stand up for ambulation patient became hypoxic. Will discuss with the hospitalist for admission. Disposition: Admission Impression: Bilateral pulmonary embolism, hypoxia This note was generated with ugichem dictation software. It may contain incorrect words, spelling, and punctuation that were not noted in review of the chart prior to signing ED Disposition - Plan for ED Patient: Chief Complaint: Shortness of Breath Referrals: Haris Stout Chi, MD [Primary Care Provider] - What to do if you have Problems For any increased pain, shortness of breath, bleeding, nausea or vomiting, chest pain, or any unexpected problems, contact your Primary Care Provider. Call [facility] ([phone]) or report to the closest Emergency Room. Call 911 if necessary. 02/03/18 1303 <Electronically signed by Stephanie Moon MD> Date Stephanie Moon MD Cosigner Signature (If Indicated): Date CC: Haris Stout MD CTA CHEST W/WO Observed: 02/03/2018 Status: F Source: [place] CONTRAST 11:09 AM [facility] REPOSITORY [facility] Imaging Services [address] [place] [address] CTA Chest W/WO Contrast MR#: [id number] Acct: [id number] Name: CONSTANCE HUGHES Rep #: [id number] : 1965 M 52 From: Elliot Dover MD PCP: Haris Stout MD, Chi Status: REG ER Study: CTA Chest W/WO Contrast Date of Exam: 02/03/18 Exam# [id number] Ordering Dr: Stephanie Moon MD STUDY: CTA CHEST REASON FOR EXAM: Male, 52 years old. One-week history of shortness of breath. Elevated d-dimer. RADIATION DOSAGE (If Supplied By Facility): CTDIvol = ( 23.83 ) mGy, DLP = ( 1095.92 ) mGycm TECHNIQUE: The examination was performed with the intravenous administration of 100mL ml of Isovue 370 contrast material. Post-processing of the angiographic images was performed, with multiplanar reformation and 3D reconstruction. Individualized dose optimization techniques were used for this CT. COMPARISON: Comparison is made with prior study dated July 21, 2016. FINDINGS: The seventh of multiple intraluminal filling defects in branches of the right upper lobe and right lower lobe pulmonary arteries in keeping with the diffuse pulmonary emboli. There is also evidence of a several intraluminal filling defects in branches of the left lower lobe pulmonary arterial branches in comparison with the pulmonary emboli. Normal thoracic aorta and visualized great vessels. There is no demonstrated aortic dissection. Normal heart and pericardium. Normal mediastinum. Normal hilar regions. Normal visualized trachea and bronchi. The lungs are well expanded. Focal scarring and bronchiectasis in the anterior aspect of the left lower lobe. Increased markings in the anterior aspect of the right middle lobe suggestive of scarring. Normal pleura. Normal chest wall structures. Normal osseous structures. Normal visualized upper abdomen. CT/CTA Chest W/WO Contrast IMPRESSION: Bilateral pulmonary emboli worse on the right side. Stable scarring in both lungs. Electronically Signed: Elliot Dover MD at 12:38 EDT Tel [phone], Service support , CC: Stephanie Moon MD; Haris Stout MD Catcher Plug: Signed BASIC METABOLIC Collected: 02/03/2018 Status: F Source: [place] PROFILE (BMP) 10:40 AM [facility] REPOSITORY TYPE CODE TESTS RESULT OUT OF RANGE REFERENCE UNITS LAB L501.0100 74-106 mg/dL High GLU 151 Result Comment: Fasting Glucose result greater than or equal to 126 mg/dL suggests DIABETES MELLITUS per A.D.A. criteria. Please note revised GLUCOSE reference range effective 2017. LAB L501.1000 7-18 mg/dL Normal BUN 17 LAB L501.1100 0.70-1.30 mg/dL Normal CREAT,SERUM 0.80 Result Comment: The validity of the calculated GFR AND GFRAA in patients over 70 years has not been determined. Clinical correlation is essential. LAB L501.1110 >60 mL/min Normal EST GFR 107 Result Comment: Non- GFR Calc LAB L501.1115 >60 mL/min Normal EST GFR - AA 130 Result Comment: GFR Calc LAB L501.1255 ml/min Normal Estimated CRCL 129.10 LAB L501.1300 10-20 RATIO High BUN/CRE 21.2 LAB L501.2200 8.5-10 mg/dL .1 CA Normal 9.3 LAB L501.5300 136-14 mmol/L 5 NA Normal 144 LAB L501.5600 3.5-5. mmol/L 1 K Normal 4.2 LAB L501.5900 98-107 mmol/L CL Normal 107 LAB L501.6100 21.0-3 mmol/L 2.0 CO2 Normal 30.0 LAB L501.6200 5-15 GAP Normal 7 Performed By: #### L500.2500, L501.4010 #### [facility] [address], [address] TROPONIN-I Collected: 02/03/2018 Status: F Source: [place] 10:40 AM [facility] REPOSITORY TYPE CODE TESTS RESULT OUT OF RANGE REFERENCE UNITS LAB L501.4010 <0.045 ng/mL Normal < 0.015 TROPONIN-I Result Comment: TROPONIN-I EXPECTED VALUES <0.045 Negative 0.045 - 0.590 Consistent with Cardiac Damage > OR = 0.600 Critical Value Not every elevated troponin is indicative of NM. These values should be used with clinical judgement in examining the patient's clinical picture for diagnosis. To establish a diagnosis of NM versus myocardial injury, there must be a demonstrated rise and/or fall in the troponin values, in addition to ischemic symptoms, EKG changes, new regional wall motion abnormality, and/or angiographical evidence. PLEASE NOTE: REFERENCE RANGES EDITED 17 Performed By: #### L500.2500, L501.4010 #### [facility] [address] [place], [address] D-DIMER QUANTITATIVE Collected: 02/03/2018 Status: F Source: [place] (DVT/PE) 10:40 AM [facility] REPOSITORY TYPE CODE TESTS RESULT OUT OF RANGE REFERENCE UNITS LAB L300.8000 0.27-0.49 FEU/ug/m High alert D-DIMER 1.49 QUANT Result Comment: D-Dimer ELEVATED (>0.49): Additional studies and clinical assessments are indicated to conclude diagnosis of: Deep Vein Thrombosis (DVT) or Pulmonary Embolism (PE) CRITICAL VALUE VERIFIED. CALLED TO MOOKIE THAYER 02/03/18 1107 Jose F Hansen. RESULTS READ BACK BY SAME. Performed By: #### L300.8000 #### [facility] [address] [place], [address] CBC W/DIFF, AUTOMATED Collected: 02/03/2018 Status: F Source: [place] 10:40 AM [facility] REPOSITORY TYPE CODE TESTS RESULT OUT OF RANGE REFERENCE UNITS LAB L100.1000 4.4-11.0 K/mm3 Normal WBC 9.2 LAB L100.1200 4.6-6.2 M/mm3 Low RBC 3.89 LAB L100.1300 13.0-16.5 g/dl Low HGB 12.8 LAB L100.1400 40-54 % Normal HCT 40.8 LAB L100.1500 80-94 fL High MCV 104.9 LAB L100.1600 27.0-32.0 pg High MCH 32.9 LAB L100.1700 32-36 g/gl Low MCHC 31.4 LAB L100.1810 11.6-14.6 % High RDW CV 15.1 LAB L100.1820 35.1-43.9 fl High RDW SD 57.7 LAB L100.1900 150-450 K/mm3 Normal PLT 266 LAB L100.2000 6.2-12.0 fl Normal MPV 10.4 LAB L100.2100 47-70 % High NEUT% 70.9 LAB L100.2200 19-41 % Low LY% 18.8 LAB L100.2300 0-10 % Normal MONO% 6.9 LAB L100.2400 0-5 % Normal EO% 3.1 LAB L100.2500 0-1 % Normal BASO% 0.2 LAB L100.2550 0.0-0.9 % Normal IM GRAN % 0.100 Result Comment: IG% - Immature Granulocytes (promyelocytes, myelocytes and metamyelocytes) > 1% indicates that a LEFT SHIFT is Present. LAB L100.2620 2.0-7.7 X10 3/uL Normal Absolute Neut 6.5 LAB L100.2720 0.83-4.51 X10 3/ul Normal Absolute Lymph 1.72 Performed By: #### L100.0100 #### [facility] [address] [place], [place], [address] BNP,B-TYPE NATRIURETIC Collected: 02/03/2018 Status: F Source: [place] PEPTIDE 10:40 AM [facility] REPOSITORY TYPE CODE TESTS RESULT OUT OF RANGE REFERENCE UNITS LAB L503.6620 0-100 pg/mL High B-TYPE 193.1 EULALIO PEP Performed By: #### L503.6620 #### [facility] [address] [place], [place], [address] CHEST 1 VIEW Observed: 02/03/2018 Status: F Source: [place] (PORTABLE) 10:23 AM [facility]PITAL REPOSITORY [facility] Imaging Services [address] [place] [address] Chest 1 View (Portable) MR#: [id number] Acct: [id number] Name: CONSTANCE HUGHES Rep #: [id number] : 1965 M 52 From: Elliot Dover MD PCP: Haris Stout MD, Chi Status: REG ER Study: Chest 1 View (Portable) Date of Exam: 02/03/18 Exam# [id number] Ordering Dr: Stephanie Moon MD STUDY: X-RAY CHEST REASON FOR EXAM: Male, 52 years old. Shortness of breath. TECHNIQUE: Single AP portable view of the chest. COMPARISON: Comparison is made with prior examination dated July 06, 2017. FINDINGS: EKG electrodes are seen. Hyperinflation. Decreased bronchovascular markings in the right upper lobe suggestive of emphysematous changes. No focal infiltrate is seen. There is no demonstrated pleural abnormality. Normal size heart. Normal mediastinum and mega. Normal visualized pulmonary arteries. Normal visualized aortic arch and descending thoracic aorta. There are diffuse degenerative changes of the visualized thoracic spine. Normal visualized ribs, clavicles, and shoulders. There is no demonstrated abnormality of the visualized soft tissue structures of the upper abdomen. RAD/Chest 1 View (Portable) IMPRESSION: Hyperinflation. Decreased bronchovascular markings in the right upper lobe suggestive of emphysematous changes. No acute abnormality is seen. Electronically Signed: Elliot Dover MD at 11:01 EDT Tel [phone], Service support , CC: Stephanie Moon MD; Haris Stout MD Catcher Plug: Signed DISCHARGE INSTRUCTION Observed: 07/06/2017 Status: F Source: [place] 11:54 AM [facility]OSPITAL REPOSITORY [facility] Medical Records Department [address] [place] [address] Discharge Instruction 07/06/17 1150 MR#: [id number] Acct: [id number] Name: CONSTANCE HUGHES Rep #: [id number] : 1965 52 From: Jacy Romo PCP: Haris Stout MD, Chi Status: REG ER ED Disposition - Plan for ED Patient: Chief Complaint: Cough Instructions: ED Bronchitis Asthmatic Prescriptions: Albuterol Aerosols [Ventolin Aerosols] 2.5 mg INHALATION Q4H PRN #25 vial Prednisone [Deltasone] 60 mg PO DAILY 5 Days #15 tablet Doxycycline Monohydrate 100 mg PO BID #20 capsule Referrals: Haris Stout Chi, MD [Primary Care Provider] - 3-5 Days What to do if you have Problems For any increased pain, shortness of breath, bleeding, nausea or vomiting, chest pain, or any unexpected problems, contact your Primary Care Provider. Call [facility] ([phone]) or report to the closest Emergency Room. Call 911 if necessary. 07/06/17 1154 <Electronically signed by Jacy Romo > Date Jacy Romo Cosigner Signature (If Indicated): Date CC: Haris Stout MD EMERGENCY DEPARTMENT Observed: 07/06/2017 Status: F Source: [place] SUMMARY 11:50 AM [facility] REPOSITORY [facility] Medical Records Department [address] [place] [address] Emergency Department Summary 07/06/17 1029 MR#: [id number] Acct: [id number] Name: CONSTANCE HUGHES Rep #: [id number] : 1965 52 From: Jacy Romo PCP: Haris Stout MD, Chi Status: REG ER - ER Visit Summary Date of Service: 07/06/17 Chief Complaint: [Cough] History of Present Illness: The patient is a 52 M [who presents the emergency department with 4 days of cough sore throat subjective fevers right ear pain headache and myalgias. He was admitted for 6 days 6 or 7 months ago with pneumonia and he feels like he may be getting that again. He has had a thick yellow productive sputum. He has a history of asthma and COPD he has been taking ProAir for that however he supposed to be on Symbicort but has not been on them for several months. He does smoke. He is otherwise healthy except for borderline elevation of his blood pressure] Physical Examination: [] 92% on room air other vitals within acceptable limits Obese WN WD NAD PERRL EOMI TMs are clear Posterior oropharynx is normal MMM NECK supple and nontender, no masses RRR no murmur rub or gallop, no peripheral edema, symmetric radial pulses Diminished breath sounds diffusely no respiratory distress ABDOMEN is soft and nontender, normal bowel sounds, no distension, no rebound or guarding SKIN is warm and dry no rashes Alert and Oriented x3, CN II-XII in tact, no motor or sensory deficits, gait normal No lymphadenopathy Test Results: [] Emergency Department Course and Treatment: [Chest x-ray was obtained to rule out pneumonia. It shows no acute process. He does have hyperexpansion consistent with COPD and asthma. He was given breathing treatments and prednisone in the emergency department. He did improve. He had improvement air movement on auscultation. He was ambulated and pulse ox maintained at 96%. He did get mildly dyspneic. At this time I do think he can be discharged home. He will be given doxycycline prednisone and albuterol nebulize. He was given precautions for which to return and will follow up with his primary care doctor] Treatment Plan: [] Disposition: [Discharge] Impression: [Asthma with bronchitis] This note was generated with ugichem dictation software. It may contain incorrect words, spelling, and punctuation that were not noted in review of the chart prior to signing ED Disposition - Plan for ED Patient: Chief Complaint: Cough Referrals: Haris Stout Chi, MD [Primary Care Provider] - What to do if you have Problems For any increased pain, shortness of breath, bleeding, nausea or vomiting, chest pain, or any unexpected problems, contact your Primary Care Provider. Call [facility] ([phone]) or report to the closest Emergency Room. Call 911 if necessary. 07/06/17 1150 <Electronically signed by Jacy Romo > Date Jacy Romo Cosigner Signature (If Indicated): Date CC: Haris Stout MD Observed: 07/06/2017 Status: F Source: [place] INFLUENZA A+B (RAPID 9:25 AM [facility]) REPOSITORY Has pt arrived? Y FLU A/B Rapid Negative test results should be confirmed by culture. Order Rapid Viral Culture for Influenzae A+B ([id number]) if clinically indicated. Influenza Ag, Direct Presumptive NEGATIVE for Influenza A/B Antigen (See Note) Performed By: #### M101.0101 #### [facility] [address] [place], [address] CBC W/DIFF, AUTOMATED Collected: 07/06/2017 Status: F Source: [place] 9:16 AM [facility] REPOSITORY TYPE CODE TESTS RESULT OUT OF RANGE REFERENCE UNITS LAB L100.1000 4.4-11.0 K/mm3 High WBC 12.2 LAB L100.1200 4.6-6.2 M/mm3 Low RBC 3.87 LAB L100.1300 13.0-16.5 g/dl Low HGB 12.3 LAB L100.1400 40-54 % Normal HCT 40.3 LAB L100.1500 80-94 fL High MCV 104.1 LAB L100.1600 27.0-32.0 pg Normal MCH 31.8 LAB L100.1700 32-36 g/gl Low MCHC 30.5 LAB L100.1810 11.6-14.6 % High RDW CV 15.0 LAB L100.1820 35.1-43.9 fl High RDW SD 57.2 LAB L100.1900 150-450 K/mm3 Normal PLT 316 LAB L100.2000 6.2-12.0 fl Normal MPV 10.0 LAB L100.2100 47-70 % Normal NEUT% 68.3 LAB L100.2200 19-41 % Normal LY% 22.0 LAB L100.2300 0-10 % Normal MONO% 6.5 LAB L100.2400 0-5 % Normal EO% 2.9 LAB L100.2500 0-1 % Normal BASO% 0.2 LAB L100.2550 0.0-0.9 % Normal IM GRAN % 0.100 Result Comment: IG% - Immature Granulocytes (promyelocytes, myelocytes and metamyelocytes) > 1% indicates that a LEFT SHIFT is Present. LAB L100.2620 2.0-7.7 X10 3/uL High Absolute Neut 8.3 LAB L100.2720 0.83-4.51 X10 3/ul Normal Absolute Lymph 2.67 Performed By: #### L100.0100 #### [facility] [address] [place], [address] BASIC METABOLIC Collected: 07/06/2017 Status: F Source: [place] PROFILE (BMP) 9:16 AM [facility] REPOSITORY TYPE CODE TESTS RESULT OUT OF RANGE REFERENCE UNITS LAB L501.0100 74-106 mg/dL High GLU 131 Result Comment: Fasting Glucose result greater than or equal to 126 mg/dL suggests DIABETES MELLITUS per A.D.A. criteria. LAB L501.1000 7-18 mg/dL Normal BUN 15 LAB L501.1100 0.70-1.30 mg/dL Normal CREAT,SERUM 0.82 Result Comment: The validity of the calculated GFR AND GFRAA in patients over 70 years has not been determined. Clinical correlation is essential. LAB L501.1110 >60 mL/min Normal EST GFR 104 Result Comment: Non- GFR Calc LAB L501.1115 >60 mL/min Normal EST GFR - AA 126 Result Comment: GFR Calc LAB L501.1255 ml/min Normal Estimated CRCL 125.95 LAB L501.1300 10-20 RATIO BUN/CRE Normal 18.2 LAB L501.2200 8.5-10 mg/dL .1 CA Normal 9.4 LAB L501.5300 136-14 mmol/L 5 NA Normal 142 LAB L501.5600 3.5-5. mmol/L 1 K Normal 3.9 LAB L501.5900 98-107 mmol/L CL Normal 106 LAB L501.6100 21.0-3 mmol/L 2.0 CO2 Normal 30.0 LAB L501.6200 5-15 GAP Normal 6 Performed By: #### L500.2500 #### [facility] [address] [place], [address] CHEST PA AND LATERAL Observed: 07/06/2017 Status: F Source: [place] 9:04 AM [facility] REPOSITORY [facility] Imaging Services [address] [place] [address] Chest PA and Lateral MR#: [id number] Acct: [id number] Name: ELLENCONSTANCE Keyonna Rep #: [id number] : 1965 M 52 From: Crow Ashraf MD PCP: Haris Stout MD, Chi Status: REG ER Study: Chest PA and Lateral Date of Exam: 07/06/17 Exam# [id number] Ordering Dr: Jacy Romo STUDY: X-RAY CHEST REASON FOR EXAM: Male, 52 years old. Productive cough. TECHNIQUE: Frontal and lateral views of the chest. COMPARISON: July 29, 2016 FINDINGS: The lungs are hyperexpanded and unchanged. There is no demonstrated pleural abnormality. Normal size heart. Normal mediastinum and mega. Normal visualized pulmonary arteries. Normal visualized aortic arch and descending thoracic aorta. Normal visualized thoracic spine. Normal visualized ribs, clavicles, and shoulders. There is no demonstrated abnormality of the visualized soft tissue structures of the upper abdomen. RAD/Chest PA and Lateral IMPRESSION: Hyperexpansion with no acute pathology. Electronically Signed: Crow Ashraf MD at 10:53 EST , Service support , CC: Jacy Romo; Haris Stout MD Catcher Plug: Signed ALLERGIES ALLERGIES DATE TYPE / CODE NAME / CODE REACTION SEVERITY SOURCE 07/06/2017 Drug egg/[id number] Anaphylaxis Unknown Muriel Allergy/[id number](S 47(RXNORM) [facility] CT) Hospital Repository 07/06/2017 Drug tree Anaphylaxis Unknown Muriel Allergy/[id number](S nut/[id number] [facility]) 53(RXNORM) Hospital Repository 07/06/2017 Miscellaneous SHRIMP Anaphylaxis Unknown Marilla Allergy/[id number](S [facility]) Hospital Repository ENCOUNTERS ENCOUNTERS ADMIT/DISCHARGE ACCOUNT ADMITTING ENCOUNTER LOCATION SOURCE NUMBER CLASS 05/18/2018 [id number] Ambulatory Muriel Muriel 1 [facility] ing:CVS Repository 02/06/2018 [id number] Ambulatory Marilla Marilla 8 [facility] ing:LAB Repository 02/03/2018/ [id number] Ambulatory BMSBuilding:W Marilla 8 7 [facility] Repository 02/03/2018 [id number] Nicho Garvin Ambulatory BMSBuilding:B Muriel 0 [facility] Repository 02/03/2018/ [id number] Nicho Garvin Inpatient Muriel Marilla 8 9 Encounter [facility] ing:PCURoom: Repository [id number]: 1 02/03/2018 [id number] Nicho Garvin Ambulatory BMSBuilding:B Marilla 8 [facility] Repository 07/06/2017/ [id number] Emergency Muriel Marilla 8 8 [facility] ing:ED Repository PAYERS PAYERS ENCOUNTER GUARANTOR PAYER SUBSCRIBER SOURCE 05/18/2018 CONSTANCE R Primary CONSTANCE R Muriel [id number] E Insurance:FAZALLTCAREPol CARISAB: [facility] ic Number: [id number] [id number] Repository [address]Tmc: [phone] e Date:5277-79-14SY [phone] () [address] [place] [id number]: 05/18/2018 Secondary NOT GIVENUNK Muriel Insurance:SELF PAY [facility] Number: Effective Repository Date:2018-05-18 02/06/2018 CONSTANCE R Primary CONSTANCE R Muriel [id number] E Insurance:AULTCAREPol WALDRONDOB: Community [employer] icy Number: [id number] [id number] Repository [address]Ikg: [phone]) e Date:2782-98-68ME [phone] () [address] [place] [phone]: 02/06/2018 Secondary NOT GIVENUNK Muriel Insurance:SELF PAY [facility] Number: Effective Repository Date:2018-02-06 02/03/2018 CONSTANCE R Primary CONSTANCE R Muriel [id number] E Insurance:AULTCAREPol WALDRONDOB: Community [employer] icy Number: [id number] [id number] Repository [address]Uky: [phone] e Date:2551-48-97KM [phone] () [address] [place] [phone]: 02/03/2018 Secondary NOT GIVENUNK Muriel Insurance:SELF PAY [facility] Number: Effective Repository Date:2018-02-03 02/03/2018 CONSTANCE R Primary CONSTANCE R Muriel [id number] E Insurance:AULTCAREPol WALDRONDOB: Community [employer] icy Number: [id number] [id number] Repository [address]Vab: [phone]) e Date:6330-66-29GD [phone] () [address] [place] [id number]: 02/03/2018 Secondary NOT GIVENUNK Muriel Insurance:SELF PAY [facility] Number: Effective Repository Date:2018-02-03 02/03/2018 CONSTANCE R Primary CONSTANCE R Muriel [id number] E Insurance:AULTCAREPol WALDRONDOB: Community [address] icy Number: [id number] [id number] Repository [address]Dyj: [phone] e Date:8360-51-85ZT [phone] () [address], [place] [address]PV: 02/03/2018 Secondary NOT GIVENUNK Muriel Insurance:SELF PAY [facility] Number: Effective Repository Date:2018-02-03 02/03/2018 CONSTANCE R Primary CONSTANCE R Marilla [id number] E Insurance:AULTCAREPol [facility] Number: [id number] [id number] Repository [address]Nwy: [phone] e Date:8213-56-89GI [phone] () [address], [place] [address]EC: 02/03/2018 Secondary NOT GIVENUNK Muriel Insurance:SELF PAY [facility] Number: Effective Repository Date:2018-02-03 07/06/2017 Constance R Primary NOT GIVENUNK Marilla [id number] Insurance:SELF PAY [place] Number: Effective Repository [address]Ncb: [phone]) Date:2017-07-06 [phone] ()
== END ==
PROVIDERS: Family Provider Family Medicine Geriatric Medicine; PCP Family Medicine Geriatric Medicine; Visit Provider Family Medicine Geriatric Medicine
DX: M25.561 Pain in right knee (principal); R60.0 Localized edema; D68.8 Other specified coagulation defects; L03.119 Cellulitis of unspecified part of limb
CPT/HCPCS: 36415; 73564; 80048; 85025; 85610; 93970

== ENCOUNTER → 2018-08-19 10:36 | Outpatient (CLI) | payer OTHER, SELFPAY ==
[2018-05-18 12:09] VITALS: BMI 45.8
--- NOTE | 2018-08-19 10:39 | VDLE_ITS ---
Reason For Study: LEG SWELLING RIGHT LEFT GSV is normal. GSV is normal. CFV is compressible, spontaneous, phasic, CFV is compressible, spontaneous, phasic, competent and demonstrates normal competent, and demonstrates normal augmentation. augmentation. FV is compressible, spontaneous, phasic, FV is compressible, spontaneous, phasic, competent and demonstrates normal competent and demonstrates normal augmentation. augmentation. POP V is compressible, spontaneous, phasic, POP V is compressible, spontaneous, phasic, competent and demonstrates normal competent and demonstrates normal augmentation. augmentation. T/P Trunk is compressible. T/P Trunk is compressible. PTV is compressible. PTV is compressible. RT PerV is compressible. LT PerV is compressible. Procedure Exam performed in department. A preliminary report was called and/or faxed to Dr. Stout. Interpretation Summary Deep veins of the lower extremities are bilaterally patent and compressible segmentally. There is no evidence of deep vein thrombosis on either side. Valvular competence appears intact within the proximal deep venous systems bilaterally. The greater saphenous veins appear bilaterally patent and compressible segmentally. Ordering Physician: Haris Stout Referring Physician: Haris Stout Chi Performed By: Rosemarie Tate RVT
[2018-08-19 14:21] LABS: Absolute Lymphocyte Count 2.16 X10^3/ul (0.83-4.51); Absolute Neutrophil Count 3.5 X10^3/uL (2.0-7.7); Basophil# 0.01 X10^3/uL; Basophil% 0.2 % (0-1); Eosinophil# 0.19 X10^3/uL; Hematocrit 41.9 % (40-54); Hemoglobin 12.6 g/dl (13.0-16.5); Lymphocyte # 2.16 X10^3/ul (4.0); Lymphocyte % 33.8 % (19-41); Mean Corp Hgb Conc 30.1 g/gl (32-36); Mean Corpuscular Hgb 31.3 pg (27.0-32.0); Mean Platelet Vol. 10.4 fl (6.2-12.0); Monocyte# 0.52 X10^3/uL; Monocyte% 8.1 % (0-10); Neutrophil # 3.51 X10^3/uL (2.7-7.7); Neutrophil % 54.7 % (47-70); POSITIVE COUNT NO; POSITIVE DIFFERENTIAL NO; POSITIVE MORPHOLOGY NO; Platelet Count 325 K/mm3 (150-450); RBC Distribution Width SD 52.9 fl (35.1-43.9); Red Blood Count 4.03 M/mm3 (4.6-6.2); White Blood Count 6.4 K/mm3 (4.4-11.0)
[2018-08-19 14:34] LABS: Anion Gap 4 (5-15); BUN 20 mg/dL (7-18); BUN/Creat Ratio 21.7 RATIO (10-20); Calcium,Total 9.5 mg/dL (8.5-10.1); Chloride 108 mmol/L (98-107); Creatinine, Serum 0.92 mg/dL (0.70-1.30); EST Glomerular Filtration Rate 91 mL/min (>60); Est Glom Filt Rate - Afr Amer 111 mL/min (>60); Glucose 131 mg/dL (74-106); Potassium 4.1 mmol/L (3.5-5.1); Sodium Level 143 mmol/L (136-145)
== END ==
PROVIDERS: Family Provider Family Medicine Geriatric Medicine; PCP Family Medicine Geriatric Medicine; Referring Provider Family Medicine Geriatric Medicine; Visit Provider Family Medicine Geriatric Medicine
DX: R60.0 Localized edema (principal)
CPT/HCPCS: 36415; 80048; 85025; 93970

== ENCOUNTER → 2018-10-11 | Outpatient (CLI) | payer OTHER, SELFPAY ==
[2018-05-18 12:09] VITALS: BMI 45.8
[2018-10-11 14:58] LABS: Absolute Lymphocyte Count 2.46 X10^3/ul (0.83-4.51); Absolute Neutrophil Count 5.2 X10^3/uL (2.0-7.7); Basophil# 0.02 X10^3/uL; Basophil% 0.2 % (0-1); Eosinophil# 0.26 X10^3/uL; Hematocrit 39.6 % (40-54); Hemoglobin 12.2 g/dl (13.0-16.5); Lymphocyte # 2.46 X10^3/ul (4.0); Lymphocyte % 28.8 % (19-41); Mean Corp Hgb Conc 30.8 g/gl (32-36); Mean Corpuscular Hgb 31.3 pg (27.0-32.0); Mean Corpuscular Volume 101.5 fL (80-94); Mean Platelet Vol. 10.5 fl (6.2-12.0); Monocyte# 0.61 X10^3/uL; Monocyte% 7.2 % (0-10); Neutrophil # 5.16 X10^3/uL (2.7-7.7); Neutrophil % 60.6 % (47-70); Platelet Count 352 K/mm3 (150-450); RBC Distribution Width CV 14.7 % (11.6-14.6); RBC Distribution Width SD 54.2 fl (35.1-43.9); White Blood Count 8.5 K/mm3 (4.4-11.0)
[2018-10-11 14:59] LABS: POSITIVE COUNT NO; POSITIVE DIFFERENTIAL NO; POSITIVE MORPHOLOGY NO
[2018-10-11 15:19] LABS: AST(SGOT) 13 U/L (15-37); Alanine Aminotransfer ALT/SGPT 30 U/L (16-61); Albumin, Serum 3.7 g/dL (3.2-5.0); Alkaline Phosphatase 60 U/L (45-117); Anion Gap 2 (5-15); BUN 23 mg/dL (7-18); BUN/Creat Ratio 25.1 RATIO (10-20); Chloride 108 mmol/L (98-107); Creatinine, Serum 0.92 mg/dL (0.70-1.30); EST Glomerular Filtration Rate 92 mL/min (>60); Est Glom Filt Rate - Afr Amer 111 mL/min (>60); Globulin 3.6 g/dL (2.2-4.2); Glucose 121 mg/dL (74-106); Potassium 5.3 mmol/L (3.5-5.1); Protein, Total 7.3 g/dL (6.4-8.2); Sodium Level 142 mmol/L (136-145); Thyroid Stim Hormone (TSH) 1.78 uIU/mL (0.358-3.74)
== END | disposition home or self-care (01) ==
LOC: POLAB3 10:53
PROVIDERS: Family Provider Family Medicine Geriatric Medicine; PCP Family Medicine Geriatric Medicine; Visit Provider Family Medicine Geriatric Medicine
DX: I10 Essential (primary) hypertension (principal)
CPT/HCPCS: 36415; 80053; 84443; 85025

== ENCOUNTER → 2018-10-13 | Outpatient (CLI) | payer OTHER, SELFPAY ==
[2018-05-18 12:09] VITALS: BMI 45.8
[2018-10-13 13:50] LABS: Anion Gap 6 (5-15); BUN 28 mg/dL (7-18); BUN/Creat Ratio 30.6 RATIO (10-20); Calcium,Total 10.1 mg/dL (8.5-10.1); Chloride 108 mmol/L (98-107); Creatinine, Serum 0.92 mg/dL (0.70-1.30); EST Glomerular Filtration Rate 92 mL/min (>60); Est Glom Filt Rate - Afr Amer 111 mL/min (>60); Glucose 78 mg/dL (74-106); Potassium 4.6 mmol/L (3.5-5.1); Sodium Level 144 mmol/L (136-145)
== END | disposition home or self-care (01) ==
LOC: POLAB3 11:27
PROVIDERS: Family Provider Family Medicine Geriatric Medicine; PCP Family Medicine Geriatric Medicine; Visit Provider Family Medicine Geriatric Medicine
DX: E87.6 Hypokalemia (principal)
CPT/HCPCS: 36415; 80048

== ENCOUNTER 2018-10-26 09:45 | Emergency (ER) | payer OTHER, SELFPAY ==
[2018-05-18 12:09] VITALS: BMI 45.8
[2018-10-26 09:46] VITALS: BP 153/89; PULSE 61; RESP 16; TEMP 36.4; O2SAT 96; BMI 47.0
--- NOTE | 2018-10-26 09:58 | CT_ITS ---
STUDY: CT ABDOMEN AND PELVIS WITHOUT CONTRAST REASON FOR EXAM: Male, 53 years old. Right flank pain following a recent fall. RADIATION DOSAGE (If Supplied By Facility): CTDIvol = ( 22.34 ) mGy, DLP = ( 1254.47 ) mGycm TECHNIQUE: Transaxial images were obtained from the dome of the diaphragm to the symphysis pubis without oral contrast, and without intravenous contrast. Sagittal and coronal images were reconstructed. Individualized dose optimization techniques were used for this CT. COMPARISON: None. FINDINGS: Minimal increased markings at the lung bases suggest rebleeding atelectasis and/or scarring. Coronary artery calcification. There is decreased attenuation of the liver consistent with steatosis. Normal gallbladder and extrahepatic biliary system. Normal spleen. Normal pancreas. Normal bilateral adrenal glands. Normal right kidney. Normal left kidney. There is a small hiatal hernia. Normal small intestine. Normal colon. The appendix is visualized and appears normal. Normal abdominal aorta. Normal inferior vena cava. There is borderline retroperitoneal lymphadenopathy with enlarged nodes no greater than 10mm in the short axis diameter. Normal urinary bladder. There are prostatic calcifications. There is a small umbilical hernia containing fat. Disc space narrowing and spondylosis at the L5-S1 level. CT/Abdomen/Pelvis W IV Cont ONLY IMPRESSION: Fatty infiltration of the liver. Linear atelectasis and/or scarring at the lung bases. Electronically Signed: Elliot Dover, at 11:27 EDT , Service support ,
[2018-10-26 10:17] LABS: Absolute Lymphocyte Count 2.08 X10^3/ul (0.83-4.51); Absolute Neutrophil Count 3.7 X10^3/uL (2.0-7.7); Basophil# 0.02 X10^3/uL; Basophil% 0.3 % (0-1); Eosinophil# 0.22 X10^3/uL; Eosinophils% 3.4 % (0-5); Hematocrit 39.7 % (40-54); Hemoglobin 12.6 g/dl (13.0-16.5); Lymphocyte # 2.08 X10^3/ul (4.0); Lymphocyte % 32.3 % (19-41); Mean Corp Hgb Conc 31.7 g/gl (32-36); Mean Corpuscular Hgb 31.3 pg (27.0-32.0); Mean Corpuscular Volume 98.8 fL (80-94); Mean Platelet Vol. 9.9 fl (6.2-12.0); Monocyte# 0.43 X10^3/uL; Monocyte% 6.7 % (0-10); Neutrophil # 3.68 X10^3/uL (2.7-7.7); Neutrophil % 57.1 % (47-70); POSITIVE COUNT NO; POSITIVE DIFFERENTIAL NO; POSITIVE MORPHOLOGY NO; Platelet Count 317 K/mm3 (150-450); RBC Distribution Width CV 14.8 % (11.6-14.6); RBC Distribution Width SD 51.7 fl (35.1-43.9); Red Blood Count 4.02 M/mm3 (4.6-6.2); White Blood Count 6.4 K/mm3 (4.4-11.0)
[2018-10-26] MEDS: Morphine 4 MG/ML Syringe IV (10:18)
[2018-10-26] MEDS: Ondansetron 4 MG/2 ML Vial IV (10:18)
[2018-10-26] MEDS: 0.9% Normal Saline 1,000 ML 150 ML IV (10:18)
[2018-10-26 10:34] LABS: ALB/GLOB Ratio 0.9 RATIO (0.9-2.4); AST(SGOT) 17 U/L (15-37); Alanine Aminotransfer ALT/SGPT 31 U/L (16-61); Albumin, Serum 3.5 g/dL (3.2-5.0); Alkaline Phosphatase 54 U/L (45-117); Anion Gap 6 (5-15); BUN 20 mg/dL (7-18); BUN/Creat Ratio 22.4 RATIO (10-20); Calcium,Total 9.5 mg/dL (8.5-10.1); Chloride 108 mmol/L (98-107); Creatinine, Serum 0.89 mg/dL (0.70-1.30); EST Glomerular Filtration Rate 95 mL/min (>60); Est Glom Filt Rate - Afr Amer 115 mL/min (>60); Estimated Creatinine Clearance 114.72 ml/min; Globulin 3.7 g/dL (2.2-4.2); Glucose 111 mg/dL (74-106); Potassium 4.1 mmol/L (3.5-5.1); Protein, Total 7.2 g/dL (6.4-8.2); Sodium Level 143 mmol/L (136-145)
[2018-10-26 10:36] LABS: International Normalized Ratio 1.2; Prothrombin Time (Protime)PT. 14.7 SECONDS (11.7-14.9)
--- NOTE | 2018-10-26 11:34 | ED.DCSUM_ITS ---
- ER Visit Summary Date of Service: 10/26/18 Chief Complaint: [Fall with injury to back] History of Present Illness: The patient is a 53 M [presents the emergency department after sustaining a fall 2 days ago. Patient states that he slipped on a wet ramp and fell backwards onto his back. Patient had pain since that time. He denies any pain radiating down his legs. He denies any change in bowel or bladder function. He denies any saddle anesthesia. Patient is currently on Coumadin and has a history of PE. He denies striking his head. He denies headache or neck pain. Patient has been ambulatory.] Physical Examination: [HEENT-PERRLA, EOMI. Cranial nerves II through XII gr ossly intact. TMs clear. Mucous membranes moist. No adenopathy. Cardiovascular-regular rate and rhythm without murmur or ectopy Lungs-clear to auscultation, chest wall stable without crepitus or subcu emphysema Abdomen-normoactive bowel sounds, soft, nontender, no rebound or rigidity, no peritoneal signs. Patient is morbidly obese Back exam-patient has tenderness over the right flank and right lumbar paraspinal musculature. No significant tenderness over the thoracic or lumbar spine itself. He has negative straight leg raises. Deep tendon reflexes are plus 2 out of 4 bilaterally at the patella and Achilles. Patient has normal 5 extension. Extremities-intact ?4, normal range of motion, normal pulses, atraumatic] Test Results: [Patient had a CBC with differential that was unremarkable. His INR was 1.2. Chemistries and LFTs were unremarkable. CT scan with IV contrast of the abdomen and pelvis showed fatty infiltration of the liver otherwise nothing acute.] Emergency Department Course and Treatment: [Patient was medicated in the emergency department with narcotic pain medication he felt improved.] Treatment Plan: [Patient will be given a prescription for [place] and Flexeril as well as naproxen.] Disposition: [Discharged home stable condition] Impression: [Chemical fall Contusion back] This note was generated with [employer] dictation software. It may contain incorrect words, spelling, and punctuation that were not noted in review of the chart prior to signing ED Disposition - Plan for ED Patient: Referrals: Haris Stout Chi, MD [Primary Care Provider] -
--- NOTE | 2018-10-26 11:36 | DCINST.ED_ITS ---
ED Disposition - Plan for ED Patient: Instructions: ED Contusion Back Prescriptions: Hydrocodone Bitart/Apap 5-325 [[place] 5MG-325MG] 1 tab PO Q4H PRN PRN 2 Days #10 tab PRN Reason: Pain Cyclobenzaprine [Flexeril] 10 mg PO TID PRN #20 tab PRN Reason: Muscle Spasm Referrals: Haris Stout Chi, MD [Primary Care Provider] - 5-7 Days
[2018-10-26 12:05] VITALS: BP 145/80; PULSE 52; RESP 18; O2SAT 96
== END 2018-10-26 12:06 | disposition home or self-care (01) ==
LOC: ED 10:37
PROVIDERS: Emergency Provider Emergency Medicine; Family Provider Family Medicine Geriatric Medicine; PCP Family Medicine Geriatric Medicine
DX: S30.0XXA Contusion of lower back and pelvis, initial encounter (principal); W01.0XXA Fall on same level from slipping, tripping and stumbling without subsequent striking against object, initial encounter; Y93.9 Activity, unspecified; Y92.9 Unspecified place or not applicable; K76.0 Fatty (change of) liver, not elsewhere classified; E66.01 Morbid (severe) obesity due to excess calories; J45.909 Unspecified asthma, uncomplicated; Z86.711 Personal history of pulmonary embolism; Z79.01 Long term (current) use of anticoagulants
CPT/HCPCS: 74177; 80053; 85025; 85610; 96361; 96374; 96375; 99283; J7030; Q9967; J2405

== ENCOUNTER → 2018-11-03 | Outpatient (CLI) | payer OTHER, SELFPAY ==
[2018-10-26 09:46] VITALS: BMI 47.0
--- NOTE | 2018-11-03 11:44 | RAD_ITS ---
HISTORY: fall. pain Exam: AP pelvis and 2 views of the left hip COMPARISON: CT scan of the abdomen and pelvis from October 26, 2018 FINDINGS: # of images incl. paperwork: 3 Arthritis is present at both hips. This is better demonstrated on the CT. Subcortical cystic degenerative change at the left hip was better demonstrated on CT. Small osteophytes remain. Sclerosis at the pubic symphysis. Bowel gas pattern is normal. No acute fracture of pelvis. Proximal femurs are intact. Sacroiliac joints and hip joints are normal. Femoral heads are adequately seated in their respective acetabulae. RAD/HIP, UNI W/ Pelvis 2-3 Views IMPRESSION: No acute disease to the pelvis or left hip Left hip arthritis better demonstrated on CT scan of October 26, 2018. at 2141 Reported and signed by: Junior Connolly MD Electronically Signed: Junior Connolly MD at 21:40 EDT Tel , Service support ,
--- NOTE | 2018-11-03 11:44 | RAD_ITS ---
HISTORY: cough, respiratory issues EXAM: XR Chest 2 Views: COMPARISON: February 03, 2018 FINDINGS: # of images incl. paperwork: 2 Linear airspace disease within the right hilum is new Coarse lung markings are similar, but with out focal airspace consolidation Heart is not enlarged. Moderate thoracic spondylosis with many enthesophytes is the same Pulmonary vascularity is distinct. No effusions. RAD/Chest PA and Lateral IMPRESSION: Coarse lung markings just above chronic bronchitis are unchanged. Linear airspace disease superimposed over the right hilum. This could be related to atelectasis, new scarring. I think it is unlikely be related to a new right hilar mass, or unlikely to be related to new focal airspace consolidation.. at 2139 Reported and signed by: Junior Connolly MD Electronically Signed: Junior Connolly MD at 21:33 EDT Tel , Service support ,
--- NOTE | 2018-11-03 11:45 | RAD_ITS ---
HISTORY: fall. low back pain COMPARISON: CT scan of the abdomen and pelvis from October 26, 2018. FINDINGS: # of images incl. paperwork: 3 XR Spine Lumbar There are 5 nonrib-bearing lumbar vertebral bodies. Gentle rightward curvature to the lumbar spine is similar. Multilevel degenerative disc disease. Multilevel facet arthropathy. Degenerative disc disease is greatest at the L5-S1 level. 5 mm retrolisthesis of L5 on S1 is chronic. Large bulky enthesophyte anterior to the L5-S1 levels better demonstrated on the CT scan, and is unchanged. This degenerative disc disease is manifested by loss of disc height, endplate sclerosis, and enthesophytes. L4 is intimately subluxed on L5 by 9 mm. This has progressed since the CT scan of last week. L3 is posteriorly subluxed on L4 by 3 mm. This is the same. Vertebral body height is preserved. Some calcifications ventral to the spine are likely within the aorta and iliac arteries.. RAD/Lumbar Spine 2 or 3 Views IMPRESSION: Multilevel degenerative disc disease with facet arthropathy similar to the CT scan from one week earlier. Although there was a trace anterior subluxation of L5 on S1 on the CT scan, this severity of that subluxation has increased from 4 mm to 9 mm. Facet arthritis at the L4-L5 level remains moderate to severe. No acute posterior element fracture is perceived. at 2146 Reported and signed by: Junior Connolly MD Electronically Signed: Junior Connolly MD at 21:45 EDT Tel , Service support ,
--- NOTE | 2018-11-03 11:45 | RAD_ITS ---
HISTORY: fall. pain low back COMPARISON: None FINDINGS: # of images incl. paperwork: 3 XR Spine Thoracic 2 Views: Kyphosis. Degenerative disc disease. Minimal chronic wedging to the mid thoracic vertebral bodies. Heart is not enlarged. Paraspinous stripe is normal. Descending thoracic aortic margin is normal. RAD/Thoracic Spine 2 Views IMPRESSION: Multilevel degenerative disc disease with bridging enthesophytes. No acute fracture or traumatic malalignment of the thoracic spine is perceived. at 5775 Reported and signed by: Junior Connolly MD Electronically Signed: Junior Connolly MD at 23:24 EDT Tel , Service support ,
--- NOTE | 2018-11-03 11:45 | RAD_ITS ---
HISTORY: fall. pain EXAM: Right Knee COMPARISON: May 18, 2018 FINDINGS: # of images incl. paperwork: 5 Arthritis at the right knee persists. The tibia is subluxed laterally on the femoral condyles. A knee effusion is present. Joint spaces are narrowed. Some osteophytes are present. The patella is subluxed laterally. No acute fracture is perceived. RAD/Knee 4 or More Views IMPRESSION: No change. Arthritis. Lateral subluxation of the tibial plateau relative to the femoral condyles to the same degree as on the previous study. Small knee effusion, to a similar degree as on the previous study. at 2139 Reported and signed by: Junior Connolly MD Electronically Signed: Junior Connolly MD at 21:38 EDT Tel , Service support ,
== END | disposition home or self-care (01) ==
LOC: RAD 11:40
PROVIDERS: Family Provider Family Medicine Geriatric Medicine; PCP Family Medicine Geriatric Medicine; Referring Provider Family Medicine Geriatric Medicine; Visit Provider Family Medicine Geriatric Medicine
DX: R07.81 Pleurodynia (principal); M54.5 Low back pain; M25.552 Pain in left hip; M25.561 Pain in right knee; R68.83 Chills (without fever)
CPT/HCPCS: 71046; 72070; 72100; 73502; 73564; 87633

== ENCOUNTER 2019-02-01 17:50 | Emergency (ER) | payer SELFPAY ==
[2019-02-01 17:51] VITALS: BP 159/83; PULSE 78; RESP 22; TEMP 36.4; O2SAT 93; BMI 48.1
--- NOTE | 2019-02-01 19:12 | ED.VISSUMM ---
- ER Visit Summary Date of Service: 02/01/19 Chief Complaint: Right knee pain History of Present Illness: The patient is a 53 M presenting with right knee pain. Patient states this has been ongoing for the past month. He states he has a popping sensation frequently in his right knee. He denies injury. He has been taking ibuprofen and Tylenol at home. He is able to ambulate. He denies fever. Denies other complaints. Physical Examination: Vitals are stable. Patient is afebrile. Alert no acute distress. HEENT exam is unremarkable. Neck is supple. Lungs are clear and equal bilaterally. Heart is regular rate and rhythm. Extremities right medial knee tenderness. No erythema or warmth. Active full range of motion. No calf tenderness. Normal distal pulses. Skin is warm and dry. No focal neurologic deficit. Remainder of exam is unremarkable. Emergency Department Course and Treatment: Right knee x-ray shows stable degenerative changes without acute findings. INR was ordered. Patient now states that he does not want to wait for this test. He has no calf pain, chest pain, or shortness of breath. He is not tachycardic or hypoxic. He does not feel that he has a blood clot. He will follow-up with his primary care physician this week. He is advised to return to the ED if he has any worsening complaints. Disposition: Discharge home Impression: Right knee pain This note was generated with [employer] dictation software. It may contain incorrect words, spelling, and punctuation that were not noted in review of the chart prior to signing ED Disposition - Plan for ED Patient: Instructions: KNEE PAIN, Uncertain Cause Prescriptions: Hydrocodone Bitart/Apap 5-325 [[place] 5MG-325MG] 1 tab PO Q6H PRN PRN 3 Days #8 tab PRN Reason: Pain Prescription Printed Referrals: Haris Stout Chi, MD [Primary Care Provider] -
--- NOTE | 2019-02-01 19:25 | RAD_ITS ---
STUDY: X-RAY - RIGHT KNEE REASON FOR EXAM: Male, 53 years old. Right knee pain x1 month TECHNIQUE: 4 view(s) of the knee. Weight-bearing COMPARISON: 11/03/2018 FINDINGS: Normal visualized distal femur. Normal visualized proximal tibia and fibula. Normal proximal tibiofibular articulation. There is moderate degenerative arthrosis of the medial femorotibial compartment with moderate joint space narrowing. There is mild degenerative arthrosis of the lateral femorotibial compartment. There is mild degenerative arthrosis of the patellofemoral articulation. There is no demonstrated joint effusion. The soft tissue structures are unremarkable. Questionable medial subluxation RAD/Knee 4 or More Views IMPRESSION: Stable degenerative changes without acute findings Electronically Signed: Cortes Tolbert DO at 19:54 EDT Tel , Service support ,
--- NOTE | 2019-02-01 20:36 | DCINST.ED_ITS ---
ED Disposition - Plan for ED Patient: Instructions: KNEE PAIN, Uncertain Cause Prescriptions: Hydrocodone Bitart/Apap 5-325 [[place] 5MG-325MG] 1 tablet PO Q6H PRN PRN 3 Days #8 tablet PRN Reason: Pain Referrals: Haris Stout Chi, MD [Primary Care Provider] -
[2019-02-01 21:48] VITALS: BP 155/89; PULSE 82; RESP 18; O2SAT 96
--- NOTE | 2019-02-01 21:48 | ED.RN ---
lab rejected blue top sample, pt refused redraw. dr. acevedo made aware. no further orders, pt has no needs at this time. will continue to monitor the pt.
== END 2019-02-01 21:49 | disposition home or self-care (01) ==
LOC: ED 19:02
PROVIDERS: Emergency Provider Emergency Medicine; Family Provider Family Medicine Geriatric Medicine; PCP Family Medicine Geriatric Medicine
DX: M25.561 Pain in right knee (principal); J45.909 Unspecified asthma, uncomplicated; M19.90 Unspecified osteoarthritis, unspecified site; Z79.01 Long term (current) use of anticoagulants
CPT/HCPCS: 73564; 99282

== ENCOUNTER 2019-06-07 16:59 | Emergency (ER) | payer OTHER, SELFPAY ==
[2019-03-16 14:20] VITALS: BMI 46.9
[2019-06-07 17:00] VITALS: BP 139/74; PULSE 81; RESP 16; TEMP 36.3; O2SAT 95; BMI 46.2
[2019-06-07 17:18] VITALS: RESP 16
--- NOTE | 2019-06-07 17:50 | RAD_ITS ---
STUDY: X-RAY - RIGHT KNEE REASON FOR EXAM: Male, 54 years old. Pain TECHNIQUE: 4 view(s) of the knee. COMPARISON: None. FINDINGS: Normal visualized distal femur. Normal visualized proximal tibia and fibula. Mild lateral shifting of the tibia is noted in relation to the femur with slight genu varus. Normal proximal tibiofibular articulation. Narrowing and mild spurring at the medial femorotibial compartment. Mild spurring at the lateral femorotibial compartment. Minimal spurring at the patellofemoral articulation. Suprapatellar effusion. The soft tissue structures are unremarkable. RAD/Knee 4 or More Views IMPRESSION: Mild degenerative changes and genu varus of the knee. Suprapatellar effusion. Electronically Signed: Stanislav Dowell DO at 18:09 EST Tel [phone], Service support ,
--- NOTE | 2019-06-07 18:42 | ED.DCSUM_ITS ---
- ER Visit Summary Date of Service: 06/07/19 Chief Complaint: Right knee pain History of Present Illness: The patient is a [address] Stuot and Dr. Ashley. He reports that he has a history of chronic right knee pain and is supposed to have a right knee replacement. States that yesterday his right knee gave out and he fell. Denies any blow to the head or loss of consciousness. He is on Coumadin. Patient reports that he has right knee pain that is now 10 out of 10 severity. Instructed as a pressure. It is worsened by movement or walking. Is relieved by rest. Has not taken anything for pain. He denies any other injuries. No neck pain, back pain, headache, shoulder, or wrist pain. Physical Examination: Vitals: Stable. Afebrile. Head: Atraumatic and normocephalic. Neck: No vertebral tenderness. Full ROM without difficulty. Cleared by NEXUS criteria. Back: No vertebral tenderness. General: A&O x 3. NAD. Cardiovascular exam: Regular rate and rhythm, no murmur, rub or gallop. Respiratory exam: Chest nontender. No crepitus. Clear to auscultation bilateral ly. No wheezes or stridor. Abdominal exam: Soft, nontender, nondistended, normal bowel sounds. No pain in RUQ or LUQ specifically. No peritoneal signs. Extremity: Moderate tenderness palpation of the suprapatellar region of his right knee. The patellar tendon is intact. He is mild pain with anterior drawer. No pain or ligamentous instability with posterior drawer or medial/lateral stress. No appreciable joint effusion. However, this is limited by his body habitus. He is neurovascular intact distal to this. Test Results: Clinical Impression(s) from Imaging Studies Knee X-Ray 06/07/19 17:50 IMPRESSION: Mild degenerative changes and genu varus of the knee. Suprapatellar effusion. Electronically Signed: Stanislav Dowell DO at 18:09 EST Tel [phone], Service support , Emergency Department Course and Treatment: Patient refused pain medications and crutches while here. Treatment Plan: Patient will be discharged with a prescription for [place]. Instructed to follow-up with Dr. Ashley 3 to 5 days if not improving. Return to the emergency department for any worsening symptoms. Disposition: To home in improved and stable condition. Impression: 1. Acute on chronic right knee pain. This note was generated with [employer] dictation software. It may contain incorrect words, spelling, and punctuation that were not noted in review of the chart prior to signing ED Disposition - Plan for ED Patient: Disposition: Home or Assisted Living Instructions: KNEE PAIN, Uncertain Cause Prescriptions: Hydrocodone Bitart/Apap 5-325 [[place] 5MG-325MG] 1 tab PO Q4H PRN PRN 2 Days #10 tab PRN Reason: Pain Prescription Printed Referrals: Mike Ashley DO [STAFF PHYSICIAN] - 3-5 Days if not improving
[2019-06-07 18:55] VITALS: RESP 18
== END 2019-06-07 19:05 | disposition home or self-care (01) ==
LOC: ED 17:45
PROVIDERS: Emergency Provider Emergency Medicine; Family Provider Family Medicine Geriatric Medicine; PCP Family Medicine Geriatric Medicine
DX: M25.561 Pain in right knee (principal); G89.29 Other chronic pain; W19.XXXA Unspecified fall, initial encounter; Y93.9 Activity, unspecified; Y92.9 Unspecified place or not applicable; J44.9 Chronic obstructive pulmonary disease, unspecified; Z86.718 Personal history of other venous thrombosis and embolism; Z79.01 Long term (current) use of anticoagulants
CPT/HCPCS: 73564; 99282

== ENCOUNTER 2021-08-09 10:13 | Emergency (ER) | payer OTHER, SELFPAY ==
[2021-08-09 10:13] VITALS: BP 187/96; PULSE 65; RESP 18; TEMP 36.1; O2SAT 96; BMI 44.9
--- NOTE | 2021-08-09 10:22 | EDS_ITS ---
HPI <KATERYNA Coburn - Last Filed: 08/09/21 11:43> History of Present Illness Chief Complaint: Eye Problem Narrative Narrative: 56-year-old male presents with pain and swelling to his left eye. 2 days ago he had mild discomfort in the eye. Yesterday the upper eyelid became pink and swollen. He has had clear tearing. He had the sensation something was stuck under his eyelid so he used the eye flush at work without improvement. Today the eyelid was a little more swollen so prompted him to come in. He wears glasses, no contacts. He denies vision changes or pain with ocular movements. No fever, chills, or URI symptoms. PFSH <KATREYNA Coburn - Last Filed: 08/09/21 11:43> PFS Medical History (Updated 08/09/21 @ 11:39 by KATERYNA Coburn) Asthma CAD (coronary artery disease) COPD (chronic obstructive pulmonary disease) DANIEL (obstructive sleep apnea) VTE (venous thromboembolism) Home Medications Breo Ellipta 08/09/21 [History Last Taken Unknown] albuterol 08/09/21 [History Last Taken Unknown] cephalexin 500 mg PO BID 7 Days #14 cap 08/09/21 [Rx Last Taken Unknown] erythromycin 1 applic LEFT EYE DAILY 4 Days g 08/09/21 [Rx Last Taken Unknown] Allergy/AdvReac Type Severity Reaction Status Date / Time egg Allergy Anaphylaxis Verified 08/09/21 10:15 tree nut [Tree Nut] Allergy Anaphylaxis Verified 08/09/21 10:15 SHRIMP Allergy Anaphylaxis Uncoded 08/09/21 10:15 Social History (Updated 08/29/19 @ 13:[address] Mike Ashley, DO) Smoking Status: Light Smoker (<10/day) ROS <KATERYNA Coburn - Last Filed: 08/09/21 11:43> ROS ED ROS Narrative Constitutional: Negative for fever, chills, malaise. Eyes: Negative for visual change. ENT: Negative for sore throat, ear pain, rhinorrhea. CVS: Negative for chest pain. Respiratory: Negative for shortness of breath, cough. GI: Negative for abdominal pain, nausea, vomiting. : Negative for dysuria. Neuro: Negative for headache, motor/sensory dysfunction. Skin: Negative for rash, abscess, or wound. Musc: Negative for joint pain, swelling, trauma. Heme: Negative for easy bruising, bleeding, lymphadenopathy. EXAM <KATERYNA Coburn - Last Filed: 08/09/21 11:43> Physical Exam Narrative Exam Narrative: CONST: Patient sitting in no acute distress. EYES: Upper eyelid is pink with soft tissue swelling. Normal conjunctiva. PERRL. EOMI without pain. No proptosis. Fluorescein stain showed no corneal abrasions or foreign bodies. ENT: Normal inspection, moist mucous membranes. NECK: Normal inspection. RESP: No respiratory distress, CTAB. CVS: Regular rate and rhythm, no murmur, no gallop. SKIN: Color normal, no rash, warm, dry, intact. EXTREMITIES: Normal appearance, no pedal edema. NEURO: Oriented x4. PSYCH: Normal affect. Const Vital Signs: 08/09/21 10:13 Temperature 96.9 F L Temperature Source Temporal Pulse Rate 65 Respiratory Rate 18 Blood Pressure 187/96 H Blood Pressure Mean 126 Pulse Ox 96 Oxygen Delivery Method Room Air MDM <KATERYNA Coburn - Last Filed: 08/09/21 11:43> [facility] Narrative Medical decision making narrative: Patient presents with atraumatic left eyelid pain and swelling. He denies vision changes. He does not wear contacts. On exam his left upper eyelid is p pink and edematous. The globe itself appears normal. Pupils are equal and reactive and extraocular motion is intact. There is no pain with ocular movement. No photophobia. Vision is 20/40 each eye. I applied 2 drops of tetracaine and fluorescein stain to the eye. My attending performed a slit lamp exam and noted there was a small stye on the medial inner lid that likely developed into local eyelid irritation versus developing preseptal cellulitis. There was no evidence of foreign body or corneal abrasion. I also have no concern for orbital cellulitis. His eye was thoroughly flushed after the exam. He will be placed on erythromycin ointment and Keflex x1 week and given ophthalmology follow-up. 1. External hordeolum, left eye <Dr. Shlomo Ivey MD - Last Filed: 08/09/21 13:02> [facility] Narrative Medical decision making narrative: Seen and evaluated independently and in conjunction with physician preschool teacher's assistant. Agree with notes above unless documented otherwise. Exam: Hordeolum present the medial aspect of the left upper eyelid but not all the way to the medial canthus. There is diffuse tenderness and appearance of cellulitis with some edema throughout the upper eyelid as a result, but there is no evidence of conjunctivitis. On slit-lamp exam after fluorescein staining, there is some mobile debris with dye uptake over the cornea, but it moves with blinking and the cornea is otherwise normal, with anterior chamber deep and quiet seen on slit-lamp. EOMI without pain or entrapment. PERRL. We irrigated the patient at the eyewash station after plain tetracaine, the debris was no longer there. I think that was a red tejada here, I do not think that is the main problem, a foreign body. I think it is the stye. Since it has spread and causing cellulitis of the eyelid now, and he is already been doing hot compresses albeit for only 1 or 2 days, we will place him on intraocular and oral antibiotics. Discharge Plan Triage Chief Complaint: Eye Problem ED Provider: Hermila Aiken Dx/Rx/DC Orders Clinical Impression: External hordeolum Instructions: ED Sty Prescriptions: New cephalexin 500 mg capsule 500 mg PO BID 7 Days Qty: 14 RF: 0 erythromycin 5 mg/gram (0.5 %) ointment 1 applic LEFT EYE DAILY 4 Days RF: 0 No Action Breo Ellipta RF: 0 albuterol RF: 0 Primary Care Provider: Care Physician,No Primary Referrals: Jae Arriaza MD [STAFF PHYSICIAN] - Care Physician,No Primary [Primary Care Provider] - Activity Restrictions/Additional Instructions: Clean your hands before touching your eye. I prescribed antibiotic eye ointment to put in your lower lid for the next few days as well as an oral antibiotic called Keflex to take for 1 week. Please follow-up with the eye doctor listed above. Disposition Disposition: Home, Self Care Discharge Date/Time: 08/09/21 11:53
[2021-08-09] MEDS: Fluorescein 1 MG STRIP 1 STRIP LEFT EYE (11:51)
[2021-08-09] MEDS: Tetracaine 0.5% Ophthalmic Bottle 2 DRP LEFT EYE (11:51)
--- NOTE | 2021-08-09 11:52 | ED.RN ---
Patient ambulated to eye wash station, eye washing performed to left eye for approx 5 minutes. Patient tolerated well however was difficult for patient to stand during due to limited mobility in knee. Dr. fisher.
[2021-08-09 11:53] VITALS: BP 173/81; PULSE 74
== END 2021-08-09 11:53 | disposition home or self-care (01) ==
PROVIDERS: Emergency Provider Physician Assistant; Visit Provider Physician Assistant
DX: H00.014 Hordeolum externum left upper eyelid (principal); J44.9 Chronic obstructive pulmonary disease, unspecified; F17.200 Nicotine dependence, unspecified, uncomplicated; I25.10 Atherosclerotic heart disease of native coronary artery without angina pectoris; Z86.718 Personal history of other venous thrombosis and embolism; G47.33 Obstructive sleep apnea (adult) (pediatric)
CPT/HCPCS: 99282